=== PATIENT | female | born 1960 | race Caucasian/White ===

== ENCOUNTER 2020-07-30 08:14 | Inpatient (IN) | payer BC, SELFPAY ==
--- OUTSIDE RECORDS SUMMARY | 2020-07-30 08:17 | XMS REPORT | Continuity of Care Document ---
:1960 Author Organization [facility] t Address [address] [place] [address] Care Team Providers Name Role Phone Unavailable Unavailable Unavailable Problems Condition Condition Condition Status Onset Resolution Last Treating Co mments Source Name Details Category Date Date Treatment Clinician Date Ganglion Ganglion Problem [facility] Allergic Allergic Problem [facility] Pure Pure Problem Active [facility] hyperchole hyperchole Luisa kes - sterolemia sterolemia Me moria [facility] Breast Breast Problem Active [facility] cancer cancer [facility] screening screening Enrique [facility]emoc [facility] Encounter Encounter Problem Active [facility] for for [facility] general general [facility] adult adult l medical medical Outpati examinatio examinatio en t n without n without Clin ics abnormal abnormal findings findings Reactive Reactive Problem Active [facility] depression [facility] Adjustment Adjustment Problem Active [facility] insomnia insomnia [facility] Allergies, Adverse Reactions, Alerts This patient has no known allergies or adverse reactions. Medications Ordered Filled Start Stop Current Ordering Indication Dosage Frequency Signature Comments Components Source Medication Medication Date Date Medication? Clinician (SIG) Name Name BuPROPion BuPROPion 2019- Yes Sugey [address] [facility] HCl ER (SR) HCl ER (SR) 2-04 [facility]very in the [facility] 00[facility]: [facility] Milk Milk Yes Sugey not [facility] Thistle Thistle Avery defined [facility] Red Yeast Red Yeast Yes Sugey not [facility] Rice Rice Avery defined [facility] HydrOXYzine HydrOXYzine Yes Sugey [address] [facility] HCl HCl Avery as needed [facility] Multivitami Multivitami Yes Sugey not [facility] n n Avery defined [facility] Outpati ent Clinics Procedures This patient has no known procedures. Encounters Start End Encounter Admission Attending Care Care Encounter Source Date/Time Date/Time Type Type Clinicians Facility Department ID 2019-10-08 2019-10-08 [facility] [id number] [facility] Clin[facility] 2019-07-16 2019-07-16 [facility] [id number] [facility] 16[facility]40[facility] 16[facility]40[facility]00 [facility] Clin[facility] 2019-06-29 2019-06-29 [facility] [id number] [facility] 11:31:00 11:31[facility]00 [facility] Clin[facility] 2019-05-04 2019-05-04 [facility] [id number] [facility] 08:20:00 08:20[facility]00 [facility] Outpat[facility] Clinics 2019-04-04 2019-04-04 [facility] [id number] [facility] 16:40[facility]00 16[facility]40[facility]00 [facility] Clinics 2019-03-13 2019-03-13 [facility] [id number] [facility] 16[facility] 16[facility]00 [facility] Clinics 2019-01-02 2019-01-02 [facility] [id number] [facility] 10:45:00 10:45:00 [facility] Clinic Outpati ent Clinics 2018-10-21 2018-10-21 [facility] [id number] [facility] 17:00:00 17:00:00 [facility] Outpati ent Clinics 2018-10-11 2018-10-11 [facility] [id number] [facility] 13:53:00 13:53:00 t [facility] Medicine Outpati ent Clinics 2018-08-14 2018-08-14 [facility] [id number] [facility] 09:30:00 09:30:00 t Urgent Ur[facility] Outpati ent Clinics 2018-06-07 2018-06-07 [facility] [id number] [facility] 14:45:00 14:45:00 t Urgent Ur[facility] Outpati ent Clinics 2018-01-04 2018-01-04 [facility] [id number] [facility] 14:10:00 14:10:00 t Urgent [facility] Outpati ent Clinics 2018-01-03 2018-01-03 [facility] [id number] [facility] 14:30:00 14:30:00 t Urgent Urgent Care [facility] 2017-09-28 2017-09-28 [facility] [id number] [facility] 13:55:00 13:55:00 t [facility] Medicine Outpati ent Clinics 2017-08-16 2017-08-16 [facility] [id number] [facility] 15:30:00 15:30:00 t [facility] Medicine Outpati ent Clinics 2017-08-16 2017-08-16 Out[facility] [id number] [facility] 11:50:00 11:50:[address] [facility] Outpati ent Clinics Results This patient has no known results.
--- NOTE | 2020-07-30 09:24 | RAD REPORT ---
EXAM DESCRIPTION: RAD - Chest Single View - 07/30/2020 9:11 am CLINICAL HISTORY: Chest pain;Dyspnea Chest pain. COMPARISON: No comparisons FINDINGS: Portable technique limits examination quality. Moderate bilateral pulmonary opacities are present which may represent pulmonary edema or pneumonia. The heart is mildly prominent in size. No displaced fractures.
[2020-07-30] MEDS ORDERED: FAMOTIDINE 20 MG/2 ML VIAL IV ONE (09:25)
[2020-07-30] MEDS ORDERED: METOPROLOL TAR 50 MG TAB ONE (09:25)
[2020-07-30] MEDS ORDERED: ASPIRIN 81 MG CHEWABLE TABLET ONE (09:26)
[2020-07-30] MEDS ORDERED: NA CHLORIDE 0.9% 1,000 ML ONE (09:26)
[2020-07-30] MEDS ORDERED: ENOXAPARIN 60 MG/0.6 ML SQ ONE (09:26)
[2020-07-30 09:51] LABS: Absolute Lymphocytes (CBC) 1.2 K/uL (0.7-4.9); Basophils % 0.4 % (0-1.3); Hematocrit 36.8 % (36.0-45.0); Lymphocytes % 18.6 % (15.3-44.8); MPV 8.6 fL (7.6-11.3); RBC Red Blood Cell Count 3.96 M/uL (3.86-4.86)
[2020-07-30 09:57] LABS: Protime INR 1.05
--- NOTE | 2020-07-30 10:03 | RAD REPORT ---
EXAM DESCRIPTION: CT - Chest For Pe Angio - 07/30/2020 9:54 am CLINICAL HISTORY: Chest pain. Chest pain;Dyspnea COMPARISON: No comparisons TECHNIQUE: CT angiogram of the pulmonary arteries was performed with MIP. All CT scans are performed using dose optimization technique as appropriate and may include automated exposure control or mA/KV adjustment according to patient size. FINDINGS: No evidence of pulmonary thromboembolism. Thoracic aorta is suboptimally contrast opacified due to bolus timing. Mild to moderate bilateral pulmonary opacities are present likely representing pulmonary edema. Small bilateral pleural effusions. No concerning bony finding. IMPRESSION: No evidence of pulmonary thromboembolism. Moderate CHF versus volume overload pattern is seen.
[2020-07-30 10:09] LABS: ALT/SGPT 25 U/L (12-78); AST/SGOT 12 U/L (15-37); Albumin 3.6 g/dL (3.4-5.0); Alkaline Phosphatase 65 U/L (45-117); BUN Blood Urea Nitrogen 16 mg/dL (7-18); Bicarbonate 27 mmol/L (21-32); Bilirubin Direct 0.1 mg/dL (0-0.2); Bilirubin Total 0.6 mg/dL (0.2-1.0); Glucose Level 111 mg/dL (74-106); Lipase 100 U/L (73-393); Magnesium 2.1 mg/dL (1.8-2.4); NT PRO-BNP 8514 pg/mL (<125); Potassium 4.6 mmol/L (3.5-5.1); Protein, Total 7.5 g/dL (6.4-8.2); Sodium Level 139 mmol/L (136-145); Troponin (Emerg Dept Use Only) < 0.02 ng/mL (0.0-0.045)
--- NOTE | 2020-07-30 10:10 | EDPHYS ---
Physician Documentation [facility] Name: Terra Hutchinson Age: 60 yrs Sex: Female : 1960 Arrival Date: 07/30/2020 Time: 08:17 Bed 14 Private MD: GLORIA Physician Troy Padgett HPI: 07/30 08:58 This 60 yrs old Female presents to ER via Ambulatory with complaints of david Breathing Difficulty. 08:58 The patient has shortness of breath with light activity. Onset: The symptoms/episode david began/occurred 2 day(s) ago. Duration: The symptoms are intermittent, with episodes lasting minutes at a time. The patient's shortness of breath is aggravated by exertion, is alleviated by rest, sitting up. Associated signs and symptoms: Pertinent positives: chest pain. Severity of symptoms: At their worst the symptoms were mild moderate in the emergency department the symptoms have improved moderately. The patient has not experienced similar symptoms in the past. Historical: - Allergies: 08:40 No Known Allergies; ss - Home Meds: 08:40 None [Active]; ss - PMHx: 08:40 None; ss - PSHx: 08:40 None; ss - Immunization history:: Adult Immunizations up to date. - Social history:: Smoking status: Patient denies any tobacco usage or history of. ROS: 08:58 Constitutional: Negative for fever, chills, and weight loss, Eyes: Negative for injury, david pain, redness, and discharge, ENT: Negative for injury, pain, and discharge, Neck: Negative for injury, pain, and swelling, Abdomen/GI: Negative for abdominal pain, nausea, vomiting, diarrhea, and constipation, Back: Negative for injury and pain, : Negative for injury, bleeding, discharge, and swelling, MS/Extremity: Negative for injury and deformity, Skin: Negative for injury, rash, and discoloration, Neuro: Negative for headache, weakness, numbness, tingling, and seizure, Psych: Negative for depression, anxiety, suicide ideation, homicidal ideation, and hallucinations, Allergy/Immunology: Negative for hives, rash, and allergies, Endocrine: Negative for neck swelling, polydipsia, polyuria, polyphagia, and marked weight changes, Hematologic/Lymphatic: Negative for swollen nodes, abnormal bleeding, and unusual bruising. 08:58 Cardiovascular: Negative for chest pain. 08:58 Respiratory: Positive for dyspnea on exertion, shortness of breath. Exam: 08:58 Constitutional: This is a well developed, well nourished patient who is awake, alert, david and in no acute distress. Head/Face: Normocephalic, atraumatic. Eyes: Pupils equal round and reactive to light, extra-ocular motions intact. Lids and lashes normal. Conjunctiva and sclera are non-icteric and not injected. Cornea within normal limits. Periorbital areas with no swelling, redness, or edema. ENT: Nares patent. No nasal discharge, no septal abnormalities noted. Tympanic membranes are normal and external auditory canals are clear. Oropharynx with no redness, swelling, or masses, exudates, or evidence of obstruction, uvula midline. Mucous membranes moist. Neck: Trachea midline, no thyromegaly or masses palpated, and no cervical lymphadenopathy. Supple, full range of motion without nuchal rigidity, or vertebral point tenderness. No Meningismus. Chest/axilla: Normal chest wall appearance and motion. Nontender with no deformity. No lesions are appreciated. Cardiovascular: Regular rate and rhythm with a normal S1 and S2. No gallops, murmurs, or rubs. Normal PMI, no JVD. No pulse deficits. Respiratory: Lungs have equal breath sounds bilaterally, clear to auscultation and percussion. No rales, rhonchi or wheezes noted. No increased work of breathing, no retractions or nasal flaring. Abdomen/GI: Soft, non-tender, with normal bowel sounds. No distension or tympany. No guarding or rebound. No evidence of tenderness throughout. Back: No spinal tenderness. No costovertebral tenderness. Full range of motion. Female : Normal external genitalia. Skin: Warm, dry with normal turgor. Normal color with no rashes, no lesions, and no evidence of cellulitis. MS/ Extremity: Pulses equal, no cyanosis. Neurovascular intact. Full, normal range of motion. Neuro: Awake and alert, GCS 15, oriented to person, place, time, and situation. Cranial nerves II-XII grossly intact. Motor strength 5/5 in all extremities. Sensory grossly intact. Cerebellar exam normal. Normal gait. Psych: Awake, alert, with orientation to person, place and time. Behavior, mood, and affect are within normal limits. 08:58 Musculoskeletal/extremity: DVT Exam: No signs of deep vein thrombosis. no pain, no swelling, no tenderness, negative Homans' sign noted on exam, no appreciated bluish discoloration, no erythema, no increased warmth. 09:01 ECG was reviewed by the Attending Physician. david Vital Signs: 08:37 BP 128 / 81; Pulse 112; Resp 18; Temp 97.9; Pulse Ox 99% on R/A; Weight 57.61 kg; ss Height 5 ft. 3 in. (160.02 cm); Pain 6/10; 09:53 BP 110 / 78; Pulse 102; Resp 18; Pulse Ox 96% on R/A; bw 10:48 BP 118 / 63; Pulse 105; Resp 21; Pulse Ox 96% on R/A; bw 13:25 BP 110 / 78; Pulse 87; Resp 19; Pulse Ox 97% on R/A; bw 08:37 Body Mass Index 22.50 (57.61 kg, 160.02 cm) ss MDM: 08:45 Patient medically screened. david 08:59 Differential diagnosis: CHF exacerbation, Chronic Obstructive Pulmonary Disease david abnormal EKG, acute myocardial infarction, anxiety, coronary artery disease chest wall pain, congestive heart failure esophagitis, pancreatitis, stable angina, unstable angina, Myocardial Infarction pulmonary edema, Pulmonary Embolism. Antibiotic administration: Not indicated. HEART Score: History: Moderately Suspicious (1), ECG: Non specific repolarization disturbance / LBTB / PM (1), Age: > 45 and < 65 years (1), Risk Factors: 1 or 2 risk factors (1), [Hypercholesterolemia] [+ Family HX] Troponin: < or = 1 x Normal Limit (0). The patient was given aspirin in the Emergency Department. The patient's Wells Deep Vein Thrombosis Score was calculated as follows: Total Score: 0. This patient was found to be at low risk for a deep vein thrombosis by using the Well's assessment criteria Total Score: 0-2 Pts- Low Risk. The patient's pulmonary embolism risk score was calculated as follows: Total Score: 0-2 points. This patient was found to be at low risk for a pulmonary embolism by using the Well's assessment criteria Total Score: 0-2 points. This patient was found to be at low risk for a pulmonary embolism by using the Well's assessment criteria. FERN Risk Score: TOTAL SCORE = 0. Immunization status: Influenza vaccine: Data reviewed: vital signs, nurses notes, lab test result(s), EKG, radiologic studies. Data interpreted: surveillance monitor: rate is 112 beats/min, rhythm is regular, Pulse oximetry: on room air is 99 %. Test interpretation: by ED physician or midlevel provider: ECG, plain radiologic studies. 07/30 08:56 Order name: Basic Metabolic Panel; Complete Time: 10:34 [facility] 07/30 08:56 Order name: CBC with Diff; Complete Time: 09:59 [facility] 07/30 08:56 Order name: LFT's; Complete Time: 10:34 [facility] 07/30 08:56 Order name: Magnesium; Complete Time: 10:34 [facility] 07/30 08:56 Order name: NT PRO-BNP; Complete Time: 10:34 [facility] 07/30 08:56 Order name: PT-INR; Complete Time: 10:06 [facility] 07/30 08:56 Order name: Troponin (emerg Dept Use Only); Complete Time: 10:34 [facility] 07/30 08:56 Order name: Lipase; Complete Time: 10:34 [facility] 07/30 09:58 Order name: Blood Culture Adult (2) [facility] 07/30 10:10 Order name: CREATININE WHOLE BLOOD; Complete Time: 10:34 [facility] 07/30 10:44 Order name: COVID-19/FLU A+B [facility] 07/30 12:04 Order name: C-Reactive Protein [facility] 07/30 08:56 Order name: XRAY Chest (1 view); Complete Time: 09:59 [facility] 07/30 08:56 Order name: EKG; Complete Time: 08:57 [facility] 07/30 08:56 Order name: Cardiac monitoring; Complete Time: 08:59 [facility] 07/30 08:56 Order name: EKG - Nurse/Tech; Complete Time: 08:59 [facility] 07/30 08:56 Order name: CT Chest For PE Angio; Complete Time: 10:06 [facility] 07/30 12:00 Order name: CONS Physician Consult [facility] 07/30 12:01 Order name: Echo with Doppler [facility] 07/30 12:04 Order name: Ferritin [facility] 07/30 08:56 Order name: IV Saline Lock; Complete Time: 08:59 [facility] 07/30 08:56 Order name: Labs collected and sent; Complete Time: 08:59 [facility] 07/30 08:56 Order name: O2 Per Protocol; Complete Time: : david 07/30 08:56 Order name: O2 Sat Monitoring; Complete Time: : [facility] EC:01 Rate is 109 beats/min. Rhythm is regular. QRS [place] is Normal. MS interval is normal. david QRS interval is normal. QT interval is normal. T waves are Inverted in leads II, III, aVF, V5, V6. No ST changes noted. Clinical impression: NSR w/ Non-specific ST/T Changes. Interpreted by me. Reviewed by me. Administered Medications: : Not Given (Duplicate Order): NS 0.9% 1000 ml IV at 125 ml/hr continuous david 10:09 Drug: Lopressor (metoprolol TARTRATE) 50 mg Route: PO; sr5 13:22 Follow up: Response: No adverse reaction bw 10:10 Drug: Aspirin Chewable Tablet 324 mg Route: PO; sr5 10:13 Drug: Pepcid (famotidine) 20 mg Route: IVP; Site: left antecubital; sr5 13:23 Follow up: Response: No adverse reaction bw 10:15 Drug: Lovenox (enoxaparin) 1 mg/kg Route: Sub-Q; Site: right lower abdomen; sr5 13:22 Follow up: Response: No adverse reaction bw 10:15 Drug: Rocephin - (cefTRIAXone) 1 grams Route: IVPB; Infused Over: 30 mins; Site: left antecubital; 10:45 Follow up: Response: No adverse reaction; IV Status: Completed infusion bw 10:49 Follow up: Response: No adverse reaction bw 10:43 Drug: Zithromax (azithromycin) 500 mg Route: IVPB; Infused Over: 1 hrs; Site: left antecubital; 13:21 Follow up: Response: No adverse reaction; IV Status: Completed infusion bw 10:43 Drug: Lasix (furosemide) 20 mg Route: IVP; Site: left antecubital; bw 10:50 Follow up: Response: No adverse reaction Disposition: 07/30/20 10:09 Hospitalization ordered by Fili Hackett for Inpatient Admission. Preliminary diagnosis are Angina pectoris, Diastolic (congestive) heart failure, Dyspnea. - Bed requested for Telemetry/MedSurg (Inpatient). - Status is Inpatient Admission. bw - Condition is Fair. - Problem is new. - Symptoms have worsened. Signatures: Dispatcher [employer] EDAZ Nely Salazar, RN RN Troy Fam MD MD cha Smirch, Shelby, RN RN Shant Benedict, RN RN sr5 Josiane Mayberry RN RN Corrections: (The following items were deleted from the chart) 10:02 08:57 CORONAVIRUS+MR.LAB.BRZ ordered. EDAZ EDAZ 10:03 09:58 Influenza Screen (A \T\ B)+BA.LAB.BRZ ordered. EDAZ EDMS 12:58 10:09 Hospitalization Ordered by Fili Hackett MD for Inpatient Admission. Preliminary diagnosis is Angina pectoris; Diastolic (congestive) heart failure; Dyspnea. Bed requested for Telemetry/MedSurg (Inpatient). Status is Inpatient Admission. Condition is Fair. Problem is new. Symptoms have worsened. david 14:30 12:58 07/30/2020 10:09 Hospitalization Ordered by Fili Hackett MD for Inpatient bw Admission. Preliminary diagnosis is Angina pectoris; Diastolic (congestive) heart failure; Dyspnea. Bed requested for Telemetry/MedSurg (Inpatient). Status is Inpatient Admission. Condition is Fair. Problem is new. Symptoms have worsened. dw
--- NOTE | 2020-07-30 10:10 | ER ---
Nurse's Notes [facility] Name: Terra Hutchinson Age: 60 yrs Sex: Female : 1960 Arrival Date: 07/30/2020 Time: 08:17 Bed 14 Private MD: Diagnosis: Angina pectoris;Diastolic (congestive) heart failure;Dyspnea Presentation: 07/30 08:37 Chief complaint: Patient states: shortness of breath x 1 week. Denies fever/ cough. Pt ss reports that the shortness of breath was worse at night at first, then on exertion and now it's all the time. Coronavirus screen: Client denies travel out of the [place] in the last 14 days. Client presents with at least one sign or symptom that may indicate coronavirus-19. Standard/surgical mask placed on the client. Provider contacted for isolation considerations. Ebola Screen: Patient denies exposure to infectious person. Patient denies travel to an Ebola-affected area in the 21 days before illness onset. Initial Sepsis Screen: Does the patient meet any 2 criteria? No. Patient's initial sepsis screen is negative. Does the patient have a suspected source of infection? No. Patient's initial sepsis screen is negative. Risk Assessment: Do you want to hurt yourself or someone else? Patient reports no desire to harm self or others. Onset of symptoms was July 23, 2020. 08:37 Method Of Arrival: Ambulatory ss 08:37 Acuity: EYAD 3 ss Triage Assessment: 13:24 General: Appears in no apparent distress. uncomfortable. General: Behavior is calm, bw cooperative, appropriate for age. Respiratory: Reports shortness of breath cough that is Onset: The symptoms/episode began/occurred yesterday. Respiratory: the patient has mild shortness of breath. Historical: - Allergies: 08:40 No Known Allergies; ss - Home Meds: 08:40 None [Active]; ss - PMHx: 08:40 None; ss - PSHx: 08:40 None; ss - Immunization history:: Adult Immunizations up to date. - Social history:: Smoking status: Patient denies any tobacco usage or history of. Screenin:56 Abuse screen: Denies threats or abuse. Nutritional screening: No deficits noted. bw Tuberculosis screening: No symptoms or risk factors identified. Fall Risk None identified. Assessment: 08:56 General: Appears in no apparent distress. Behavior is calm, cooperative, appropriate bw for age. Pain: Complains of pain in denies pain, but SOB. Cardiovascular: Rhythm is sinus tachycardia. Respiratory: Airway is patent Respiratory effort is even, unlabored, Breath sounds are clear bilaterally. Breath sounds are diminished. 09:54 Reassessment: Patient appears in no apparent distress at this time. Patient and/or bw family updated on plan of care and expected duration. Pain level reassessed. Patient is alert, oriented x 3, equal unlabored respirations, skin warm/dry/pink. 10:48 Reassessment: Patient appears in no apparent distress at this time. Patient and/or bw family updated on plan of care and expected duration. Pain level reassessed. Patient is alert, oriented x 3, equal unlabored respirations, skin warm/dry/pink. 13:24 Reassessment: Patient appears in no apparent distress at this time. Patient and/or bw family updated on plan of care and expected duration. Pain level reassessed. Patient is alert, oriented x 3, equal unlabored respirations, skin warm/dry/pink. 13:48 Reassessment: report called to 2nd floor RN. Vital Signs: 08:37 BP 128 / 81; Pulse 112; Resp 18; Temp 97.9; Pulse Ox 99% on R/A; Weight 57.61 kg; ss Height 5 ft. 3 in. (160.02 cm); Pain 6/10; 09:53 BP 110 / 78; Pulse 102; Resp 18; Pulse Ox 96% on R/A; bw 10:48 BP 118 / 63; Pulse 105; Resp 21; Pulse Ox 96% on R/A; bw 13:25 BP 110 / 78; Pulse 87; Resp 19; Pulse Ox 97% on R/A; bw 08:37 Body Mass Index 22.50 (57.61 kg, 160.02 cm) ED Course: 08:17 Patient arrived in ED. ds1 08:40 Triage completed. ss 08:40 Arm band placed on right wrist. ss 08:45 Troy Padgett MD is Attending Physician. [facility] 08:56 Josiane Mayberry, RN is Primary Nurse. 08:56 Patient has correct armband on for positive identification. Bed in low position. Call bw light in reach. Side rails up X2. engine monitor on. Pulse ox on. NIBP on. Warm blanket given. 08:56 No provider procedures requiring assistance completed. bw 09:11 XRAY Chest (1 view) In Process Unspecified. EDMS 09:12 Missed attempt(s): 22 gauge in right forearm. mt 09:36 Initial lab(s) drawn, by me, sent to lab. Inserted saline lock: 22 gauge in left sr5 antecubital area, using aseptic technique. Blood collected. 22g [employer]. 09:54 CT Chest For PE Angio In Process Unspecified. EDMS 10:07 Fili Hackett MD is Hospitalizing Provider. david 10:15 First set of blood cultures drawn by me. mt 10:32 Second set of blood cultures drawn by me. mt 13:24 Patient admitted, IV remains in place. bw Administered Medications: 09:58 Not Given (Duplicate Order): NS 0.9% 1000 ml IV at 125 ml/hr continuous david 10:09 Drug: Lopressor (metoprolol TARTRATE) 50 mg Route: PO; sr5 13:22 Follow up: Response: No adverse reaction bw 10:10 Drug: Aspirin Chewable Tablet 324 mg Route: PO; sr5 10:13 Drug: Pepcid (famotidine) 20 mg Route: IVP; Site: left antecubital; sr5 13:23 Follow up: Response: No adverse reaction bw 10:15 Drug: Lovenox (enoxaparin) 1 mg/kg Route: Sub-Q; Site: right lower abdomen; sr5 13:22 Follow up: Response: No adverse reaction bw 10:15 Drug: Rocephin - (cefTRIAXone) 1 grams Route: IVPB; Infused Over: 30 mins; Site: left bw antecubital; 10:45 Follow up: Response: No adverse reaction; IV Status: Completed infusion bw 10:49 Follow up: Response: No adverse reaction bw 10:43 Drug: Zithromax (azithromycin) 500 mg Route: IVPB; Infused Over: 1 hrs; Site: left bw antecubital; 13:21 Follow up: Response: No adverse reaction; IV Status: Completed infusion bw 10:43 Drug: Lasix (furosemide) 20 mg Route: IVP; Site: left antecubital; bw 10:50 Follow up: Response: No adverse reaction bw Outcome: 10:09 Decision to Hospitalize by Provider. david 13:23 Admitted to Med/surg 13:23 Condition: stable 13:23 Discharge instructions given to patient, family. 14:30 Patient left the ED. Signatures: Dispatcher [employer] EDTroy Tamayo MD MD cha Sanford, Demi ds1 Yomaira Rush, RN RN Shant Fairchild, RN RN sr5 Ruben Garciaah Josiane Paul RN RN
[2020-07-30] MEDS ORDERED: CEFTRIAXONE/SWI 1gm 1 GM/10 ML SYR ONE (10:22)
[2020-07-30] MEDS ORDERED: FUROSEMIDE 20 MG/ 2ML VIAL ONE (10:22)
[2020-07-30] MEDS ORDERED: NA CHLORIDE 0.9% 250 ML ONE (10:22)
[2020-07-30] MEDS ORDERED: AZITHROMYCIN 500 MG INJ IVPB ONE (10:23)
[2020-07-30 10:44] LABS: SARS-COV-2 RT PCR NEGATIVE (NEGATIVE)
--- NOTE | 2020-07-30 12:05 | P.HP ---
Certification for Inpatient Patient admitted to: Observation With expected LOS: <2 Midnights Practitioner: I am a practitioner with admitting privileges, knowledge of patient current condition, hospital course, and medical plan of care. Services: Services provided to patient in accordance with Admission requirements found in Title 42 Section 412.3 of the Code of Federal Regulations Patient History Date of Service: 07/30/20 Reason for admission: New onset CHF exacerbation History of Present Illness: 60-year-old female no significant past medical history presents the ED due to 1 week of worsening shortness of breath/dyspnea on exertion and orthopnea. Patient states she was otherwise in her usual state of health until this past week. She has not been having significant dyspnea, and cannot walk to her mailbox without getting short of breath now. She also states she has been having orthopnea, requiring several pillows over landing and share and inclined position. She denies any prior cardiac history, no recent chest pain, no family history of cardiac issues. She is not take any medications, but does endorse taking a multivitamin and vitamin-D 3. Denies smoking history. Denies fever, chills, chest pain, abdominal pain, nausea/vomiting. She does endorse 2-3 episodes of soft stools/diarrhea yesterday. She does have multiple family members with recent COVID-19 infections, however she reports shows negative last week and negative here in the ER. In the ED, CTA was negative for PE, but notable for bilateral pulmonary edema and small pleural effusions consistent with moderate CHF type picture. She had elevated BNP. Troponin: Negative. EKG without ST elevation, and and some T- wave inversions, unsure if new. The rest of the CBC/CMP was otherwise unrem arkable. Allergies No Known Allergies Allergy (Unverified 02/04/17 09:38) Home medications list reviewed: Yes (None) - Past Medical/Surgical History Diabetic: No Past Medical History: Patient denies medical history -: -: "Monica ames" - Family History Family History: Reviewed- Non-Contributory - Family History Mother -: Heart disease - Social History Smoking Status: Never smoker Alcohol use: No CD- Drugs: No Place of Residence: Home Review of Systems 10-point ROS is otherwise unremarkable Physical Examination - Studies Laboratory Data (last 24 hrs) 07/30/20 09:30: PT 12.1, INR 1.05 07/30/20 09:30: WBC 6.60, Hgb 12.5, Hct 36.8, Plt Count 306 07/30/20 09:30: Sodium 139, Potassium 4.6, BUN 16, Creatinine 0.66, Glucose 111 H, Magnesium 2.1, Total Bilirubin 0.6, AST 12 L, ALT 25, Alkaline Phosphatase 65, Lipase 100 Assessment and Plan - Advance Directives Does patient have a Living Will: No Does patient have a Durable POA for Healthcare: No Physician Review Additional Text: Physical exam General: No apparent distress, alert oriented x3 HEENT: Normal conjunctiva, sclerae anicteric CV: Regular rate and rhythm, no murmur, no rub Pulm: b/l crackles, diminished at bases, very mild tachypnea on room air Abd: soft, NTND Ext: trace edema to ankles, no rash, no lesions Neuro: AAOx3, str 5/5 in upper/lower extremities Problem list New onset CHF exacerbation Small bilateral pleural effusions Bilateral pulmonary edema Patient's blood pressure on presentation was 128/81, HR: 112, 90% on room air Unclear etiology of his presumed CHF exacerbation Patient denies any cardiac history, denies any prior COVID infection , and is negative today Will obtain Echocardiogram for further evaluation Will start IV Lasix for Diuresis Cardiology consulted given new onset will trend troponin VTE: lovenox Code: full Dispo: anticipate dc home in 24-48hrs Time Spent Managing Pts Care (In Minutes): 60
[2020-07-30 12:53] LABS: Ferritin 76.8 ng/mL (8-388)
[2020-07-30 12:59] LABS: C-Reactive Protein < 2.90 mg/L (<3.00)
[2020-07-30] MEDS ORDERED: ONDANSETRON 4 MG/2 ML VIAL ONE (13:03)
[2020-07-30] MEDS ORDERED: ONDANSETRON 4 MG/2 ML VIAL IV PRN (14:34)
[2020-07-30] MEDS ORDERED: ENOXAPARIN 40 MG/0.4 ML SQ SCH (15:00)
[2020-07-30 15:59] VITALS: BMI 22.4
[2020-07-30 16:31] LABS: Troponin I < 0.02 ng/mL (0.0-0.045)
[2020-07-30] MEDS ORDERED: FUROSEMIDE 20 MG/ 2ML VIAL IV SCH (17:00)
[2020-07-30 18:57] LABS: Urine Appearance CLEAR (Clear); Urine Bilirubin NEGATIVE (Negataive); Urine Blood NEGATIVE (Negative); Urine Color YELLOW (Yellow); Urine Glucose NEGATIVE (Negative); Urine Protein NEGATIVE (Negative); Urine Specific Gravity 1.015 (1.005-1.030); Urine Urobilinogen 0.2 mg/dL (0.2-1.0)
[2020-07-30 19:11] LABS: Urine Bacteria <20 /HPF (<20); Urine RBC <5 /HPF (NONE SEEN)
[2020-07-30] MEDS: SACUBITRIL/VALSARTAN 24/26 MG TAB PO SCH (20:36)
[2020-07-31] MEDS: SACUBITRIL/VALSARTAN 24/26 MG TAB PO SCH (04:09)
[2020-07-31 05:44] LABS: Absolute Lymphocytes (CBC) 1.9 K/uL (0.7-4.9); Basophils % 1.2 % (0-1.3); Hematocrit 36.9 % (36.0-45.0); Lymphocytes % 34.5 % (15.3-44.8); MPV 8.8 fL (7.6-11.3); RBC Red Blood Cell Count 3.94 M/uL (3.86-4.86)
[2020-07-31] MEDS ORDERED: carvediloL 3.125 MG TAB PO SCH (06:00)
[2020-07-31 06:06] LABS: Albumin 3.3 g/dL (3.4-5.0); Bilirubin Total 0.4 mg/dL (0.2-1.0); Magnesium 2.2 mg/dL (1.8-2.4); Potassium 4.1 mmol/L (3.5-5.1); Protein, Total 6.8 g/dL (6.4-8.2)
--- NOTE | 2020-07-31 06:54 | EKG ---
Test Date: 2020-07-30 Test Time: 08:54:31 Staff Psychologist: GUERRERO MEASUREMENT RESULTS: Intervals: Rate: 109 [place]: 154 QRSD: 82 QT: 344 QTc: 463 [place]: P: 59 [place]: 154 QRS: 57 T: 252 INTERPRETIVE STATEMENTS: Sinus tachycardia Possible Left atrial enlargement ST & T wave abnormality, consider inferolateral ischemia Abnormal ECG No previous ECG available for comparison Electronically Signed On 07-31-20 06:52:51 CDT by Boni Schneider
--- NOTE | 2020-07-31 08:28 | ECHO ---
HEIGHT: 5 ft 3 in WEIGHT: 127 lb 0 oz DATE OF STUDY: 07/30/[address]: Fili Hackett MD 2-DIMENSIONAL: YES M.MODE: YES DOPPLER: YES COLOR FLOW: YES TDS: NO PORTABLE: NO DEFINITY: NO BUBBLE STUDY: NO DIAGNOSIS: EVALUATE FOR CONGESTIVE HEART FAILURE CARDIAC HISTORY: CATHERIZATION: NO SURGERY: NO PROSTHETIC VALVE: NO PACEMAKER: NO MEASUREMENTS (cm) DIASTOLIC (NORMALS) SYSTOLIC (NORMALS) IVSd 0.8 (0.6-1.2) LA Diam 3.1 (1.9-4.0) LVEF 18% LVIDd 5.9 (3.5-5.7) LVIDs 5.4 (2.0-3.5) %FS 8% LVPWd 0.9 (0.6-1.2) Ao Diam 2.1 (2.0-3.7) 2 DIMENSIONAL ASSESSMENT: RIGHT ATRIUM: NORMAL LEFT ATRIUM: NORMAL RIGHT VENTRICLE: NORMAL LEFT VENTRICLE: DILATED TRICUSPID VALVE: NORMAL MITRAL VALVE: NORMAL PULMONIC VALVE: NORMAL AORTIC VALVE: NORMAL PERICARDIAL EFFUSION: NONE AORTIC ROOT: NORMAL LEFT VENTRICULAR WALL MOTION: SEVERE GLOBAL HYPOKINESIS. DOPPLER/COLOR FLOW: MILD TRICUSPID AND MITRAL REGURGITATION. COMMENTS: MILD TRICUSPID AND MITRAL REGURGITATION. SEVERE GLOBAL HYPOKINESIS. LEFT VENTRICULAR EJECTION FRACTION 18%. NO CLOTS. NO EFFUSION. TECHNOLOGIST: [place] LEWIS
--- NOTE | 2020-07-31 08:29 | RAD REPORT ---
EXAM DESCRIPTION: Misti Single View07/31/2020 8:12 am CLINICAL HISTORY: Shortness of breath COMPARISON: July 30 FINDINGS: Bilateral pulmonary opacities have resolved. Heart is mildly enlarged IMPRESSION: Resolution in the pulmonary edema
[2020-07-31] MEDS ORDERED: ENOXAPARIN 40 MG/0.4 ML SQ SCH (09:00)
[2020-07-31 09:15] VITALS: BP 82/60; TEMP 97.7
[2020-07-31 10:22] VITALS: O2SAT 93
--- NOTE | 2020-07-31 11:03 | P.DS ---
Admission Date: 07/30/20 Discharge Date: 07/31/20 Disposition: ROUTINE DISCHARGE Discharge Condition: GOOD Reason for Admission: New onset CHF exacerbation Consultations: Cardiology - Dr. Schneider Procedures: CXR (07/30): Moderate bilateral pulmonary opacities are present which may represent pulmonary edema or pneumonia. The heart is mildly prominent in size. No displaced fractures. CTA Chest (07/30): No evidence of pulmonary thromboembolism. Moderate CHF versus volume overload pattern is seen. CXR (07/31): Resolution in the pulmonary edema TTE (07/30): LV EF: 18%, dilated LV. Severe global hypokinesis. Mild TR and MR. No clots. No effusion. Problem list New onset, acute systolic CHF exacerbation / Dilated Cardiomyopathy Brief History of Present Illness: 60-year-old female no significant past medical history presents the ED due to 1 week of worsening shortness of breath/dyspnea on exertion and orthopnea. Patient states she was otherwise in her usual state of health until this past week. She has not been having significant dyspnea, and cannot walk to her mailbox without getting short of breath now. She also states she has been having orthopnea, requiring several pillows over landing and share and inclined position. She denies any prior cardiac history, no recent chest pain, no family history of cardiac issues. She is not take any medications, but does endorse taking a multivitamin and vitamin-D 3. Denies smoking history. Denies fever, chills, chest pain, abdominal pain, nausea/vomiting. She does endorse 2-3 e pisodes of soft stools/diarrhea yesterday. She does have multiple family members with recent COVID-19 infections, however she reports shows negative last week and negative here in the ER. In the ED, CTA was negative for PE, but notable for bilateral pulmonary edema and small pleural effusions consistent with moderate CHF type picture. She had elevated BNP. Troponin: Negative. EKG without ST elevation, and and some T- wave inversions, unsure if new. The rest of the CBC/CMP was otherwise unremarkable. Hospital Course: Patient was diuresed with Lasix and responded well. Echocardiogram was obtained which revealed an EF of 18%, with a severely dilated LV. Cardiology was consulted and recommended Entresto, low-dose carvedilol, and Lasix. Patient's blood pressure to begin amount was borderline low-normal in drops into the 80s/40 's with Entresto. She denied any dizziness/lightheadedness with her blood pressure like this. She reportedly feeling significantly better after diuresis. Due to her low blood pressure she was only discharged with a prescription for Entresto. She was advised to check her blood pressure every day and to hold the medication if her systolic blood pressure was less than 90. She was advised on a low- sodium, 2 L fluid restriction diet. She is to follow up with Dr. Schneider next week. She is to keep a log of her blood pressure is a will take this to her appointment. Further addition of Coreg and Lasix to be discussed at that time. Vital Signs/Physical Exam: Physical exam General: No apparent distress, alert oriented x3 HEENT: Normal conjunctiva, sclerae anicteric CV: Regular rate and rhythm, no murmur, no rub Pulm: Clear auscultation bilaterally, nonlabored respirations on room air Abd: soft, NTND Ext: No edema, no rash, no lesions Neuro: AAOx3, str 5/5 in upper/lower extremities Temp Pulse Resp BP Pulse Ox 97.7 F 94 H 18 82/60 L 94 07/31/20 08:00 07/31/20 08:00 07/31/20 08:00 07/31/20 08:00 07/31/20 08:00 Laboratory Data at Discharge: WBC 5.50 K/uL (4.3-10.9) D 07/31/20 05:06 Hgb 12.2 g/dL (12.0-15.0) 07/31/20 05:06 Hct 36.9 % (36.0-45.0) 07/31/20 05:06 Plt Count 298 K/uL (152-406) 07/31/20 05:06 PT 12.1 SECONDS (9.5-12.5) 07/30/20 09:30 INR 1.05 07/30/20 09:30 Sodium 141 mmol/L (136-145) 07/31/20 05:06 Potassium 4.1 mmol/L (3.5-5.1) 07/31/20 05:06 BUN 18 mg/dL (7-18) 07/31/20 05:06 Creatinine 0.78 mg/dL (0.55-1.3) 07/31/20 05:06 Glucose 95 mg/dL (74-106) 07/31/20 05:06 Magnesium 2.2 mg/dL (1.8-2.4) 07/31/20 05:06 Total Bilirubin 0.4 mg/dL (0.2-1.0) 07/31/20 05:06 AST 15 U/L (15-37) 07/31/20 05:06 ALT 23 U/L (12-78) 07/31/20 05:06 Alkaline Phosphatase 58 U/L (45-117) 07/31/20 05:06 Troponin I Cancelled 07/30/20 21:30 Lipase 100 U/L (73-393) 07/30/20 09:30 Home Medications: Sacubitril/Valsartan [Entresto 24 mg-26 mg Tablet] 1 tab PO BID 30 Days #60 tab 07/31/20 New Medications: Sacubitril/Valsartan [Entresto 24 mg-26 mg Tablet] 1 tab PO BID 30 Days #60 tab Diet: Low sodium Activity: Ad ryan Followup: Sugey Anne, MELODY [Primary Care Provider] - Time spent managing pt's care (in minutes): 40
--- NOTE | 2020-07-31 21:59 | CON ---
Reason For Consultation: Admitted to Dr. Hackett's service with congestive heart failure. History Of Present Illness: Ms. Hutchinson is an is 60-year-old woman who has no past medical history. She denies hypertension, diabetes, dyslipidemia, family history of heart disease. She denied tobacco use or alcohol use. She is very healthy. Denied any travel outside the country. Denied any exposu re of any viruses. Denied any recent fever or chills or illness. Came in with 1 week PND, orthopnea , pedal edema, shortness of breath, and found to have on chest x-ray to be in congestive heart failur e. Echocardiogram showed an ejection fraction of 18% with dilated cardiomyopathy, new onset. Past Medical History: Otherwise negative. Allergies: NEGATIVE. Review of Systems: Negative. Social History: Negative. Family History: Negative. Physical Examination: General: Very pleasant lady, looks younger than her stated age. Vital Signs: Stable, afebrile. Blood pressure was 110/60, sinus rhythm. HEENT: Negative. Neck: Supple. No bruit. Chest: Clear to auscultation and percussion on the right. On the left side, she has some rales. Cardiac: Exam revealed sinus rhythm with an S3 gallops and S4 gallops. No murmurs or rubs. Abdomen: Benign. Extremities: Revealed 1+ edema. Diagnostic Data: Unremarkable except for a BNP of 1192. EKG was normal. Chest x-ray showed mild CH F. Impression And Plan: Acute systolic congestive heart failure, dilated cardiomyopathy, ejection fract ion of 18%. The patient needs to be on Entresto, Coreg and Lasix. If her blood pressure tolerates i t, we will add Aldactone. I will see her in the office in the next 2 to 3 days. She will eventually need a heart catheterization. If ejection fraction does not improve on medication, we will consider defibrillator biventricular pacemaker and I will consider her for a LifeVest sometime next week. Sunita richter has not had any arrhythmia since. The case was discussed with her in detail with her son available and was discussed with Dr. Hackett as well. ROBYN/ABEL Voice ID: [id number] Report ID: [id number]
== END 2020-07-31 11:50 | disposition home or self-care (01) | DRG 292 ==
LOC: ER 08:14 → ERHOLD 11:59 → 2ND 13:55 → OBSVTOIN 18:53
PROVIDERS: ADMIT Hospitalist; ATTEND Hospitalist
DX: I50.23 Acute on chronic systolic (congestive) heart failure (principal); I42.0 Dilated cardiomyopathy; Z79.899 Other long term (current) drug therapy; Z20.822 Contact with and (suspected) exposure to COVID-19
CPT/HCPCS: 0240U; 36415; 71045; 71275; 80048; 80053; 80076; 81001; 82565; 82728; 83690; 83735; 83880; 84439; 84443; 84484; 85025; 85610; 86140; 87040; 93005; 93306; 94760; 96365; 96366; 96372; 96375; 99285; G0378; J0456; J0696; J1650; J1940; J2405; J7030; J7050; Q9967

== ENCOUNTER 2020-08-21 12:55 | Day surgery (SDC) | payer SELFPAY ==
[2020-08-19 12:38] LABS: Absolute Lymphocytes (CBC) 1.8 K/uL (0.7-4.9); Basophils % 1.4 % (0-1.3); Hematocrit 39.1 % (36.0-45.0); Lymphocytes % 35.6 % (15.3-44.8); MPV 8.9 fL (7.6-11.3); RBC Red Blood Cell Count 4.22 M/uL (3.86-4.86)
[2020-08-19 12:50] LABS: Potassium 4.2 mmol/L (3.5-5.1)
[2020-08-19 13:01] LABS: Protime INR 1.04
--- NOTE | 2020-08-20 16:12 | EKG ---
Test Date: 2020-08-19 Test Time: 11:14:52 Transplant Rn: JOSUE MEASUREMENT RESULTS: Intervals: Rate: 83 ME: 168 QRSD: 82 QT: 382 QTc: 448 [place]: P: 70 ME: 168 QRS: 38 T: 212 INTERPRETIVE STATEMENTS: Normal sinus rhythm Possible Left atrial enlargement T wave abnormality, consider inferior ischemia T wave abnormality, consider anterolateral ischemia Abnormal ECG Compared to ECG 07/30/2020 08:54:31 T-wave abnormality now present Sinus tachycardia no longer present ST (T wave) deviation no longer present Possible ischemia still present Electronically Signed On 08-20-20 16:07:21 CDT by Boni Schneider
[2020-08-21] MEDS ORDERED: NA CHLORIDE 0.9% 500 ML ONE (16:30)
[2020-08-21] MEDS ORDERED: HEPARIN 5000 UNIT/ML 1 ML VIAL ONE (17:32)
[2020-08-21] MEDS ORDERED: HEPA 1000U/500MLS 2,000 UNIT/1,000 ML BAG IV ONE (17:32)
[2020-08-21] MEDS ORDERED: VERAPAMIL HCL 10 MG/4 ML VIAL IV ONE (17:33)
[2020-08-21] MEDS ORDERED: FENTANYL CITR 100 MCG/2 ML ONE (17:33)
[2020-08-21] MEDS ORDERED: HEPARIN 10,000 UNIT/10 ML VIAL IV ONE (17:33)
[2020-08-21] MEDS ORDERED: MIDAZOLAM HCL 2 MG/2 ML INJ ONE (17:33)
[2020-08-21] MEDS ORDERED: ATROPINE SULF 1 MG/10 ML SYR IV ONE (17:34)
[2020-08-21] MEDS ORDERED: METOPROLOL TARTRATE 5 MG/5 ML INJ IV ONE (18:13)
[2020-08-21 19:13] VITALS: TEMP 97.8
[2020-08-21 20:26] VITALS: BP 93/59; O2SAT 97
--- NOTE | 2020-08-22 05:09 | OP ---
Date of Procedure: 08/21/2020 Surgeon: ADRIANA JACKSON Procedure Performed: 1.Selective coronary angiogram. 2.Left heart catheterization. Indication: New-onset systolic congestive heart failure with EF of 15% to 20%. Access: Right radial artery 6-Welsh closed with TR band. Description Of Procedure: After risks, benefits, alternatives were explained, the patient agreed to the procedure and signed informed consent. The patient was brought into the cardiac catheterization laboratory, prepped and draped in usual sterile fashion. Then, we access radiated to the right radia l artery using a pediatric micropuncture kit and placed a 6-Welsh slender sheath and took a 5-Welsh [place] catheter for onto the aortic root, engaged left main, right coronary artery and took standard views and then the catheter was pushed over the wire across aortic valve into the LV, recorded LVEDP and upon pullback, there was no gradient and then removed the catheter and wire and sheath was remove d, placed TR band with good hemostasis. Findings: 1.Left main is normal. 2.LAD is normal with some myocardial branch. 3.Left circumflex is normal. 4.RCA is dominant and normal. 5.LVEDP of 15 mmHg. Conclusion: Normal coronary arteries and this is nonischemic cardiomyopathy. Recommendations: Guideline directed medical therapy for congestive heart failure. SR/MODL Voice ID: [id number] Report ID: [id number]
== END 2020-08-21 20:00 | disposition home or self-care (01) ==
LOC: CCL 12:55
PROVIDERS: ATTEND Internal Medicine
PROC: 4A023N7 Measurement of Cardiac Sampling and Pressure, Left Heart, Percutaneous Approach (ICD-10-PCS; principal; 2020-08-21)
PROC: B201YZZ Plain Radiography of Multiple Coronary Arteries using Other Contrast (ICD-10-PCS; 2020-08-21)
PROC: B205YZZ Plain Radiography of Left Heart using Other Contrast (ICD-10-PCS; 2020-08-21)
DX: I50.21 Acute systolic (congestive) heart failure (principal); I42.9 Cardiomyopathy, unspecified; Z20.822 Contact with and (suspected) exposure to COVID-19; Z82.49 Family history of ischemic heart disease and other diseases of the circulatory system
CPT/HCPCS: 36415; 80048; 85025; 85610; 85730; 93005; 93458; C1893; J1644; J2250; J3010; J7040; U0003

== ENCOUNTER 2021-03-31 07:38 | Emergency (ER) | payer OTHER ==
--- OUTSIDE RECORDS SUMMARY | 2021-03-31 07:41 | XMS REPORT | Continuity of Care Document ---
:1960 Author Organization [facility] t Address [address] [place] [address] Care Team Providers Name Role Phone Ashlee ALLRED Attending Clinician Unavailable Janneth LIRA Attending Clinician Unavailable CLARISSA Attending Clinician Unavailable Ashlee ALLRED Attending Clinician Unavailable System MD, Not In Attending Clinician Unavailable BRENDA Attending Clinician Unavailable CLARISSA Admitting Clinician Unavailable Ashlee ALLRED Admitting Clinician Unavailable Payers Payer Name Policy Type Policy Number Effective Date Expiration Date Maribell MARTINEZ [id number] 2020 2024 HEALTH PLAN 00:00:00 00:00:00 [employer] [id number] 2020 SOLUTIONS 00:00:00 Problems Condition Condition Condition Status Onset Resolution Last Treating Co mments Source Name Details Category Date Date Treatment Clinician Date Ganglion Ganglion Problem [facility] Allergic Allergic Problem [facility] Pure Pure Problem Active [facility] hyperchole hyperchole [facility] - sterolemia sterolemia [facility] Breast Breast Problem Active [facility] cancer cancer [facility] screening screening [facility] Encounter Encounter Problem Active [facility] for for [facility] general [facility] adult adult l medical medical Outpati examinatio examinatio en t n without n without Clin ics abnormal abnormal findings findings Reactive Reactive Problem Active [facility] Adjustment Adjustment Problem Active [facility] insomnia [facility] Allergies, Adverse Reactions, Alerts Allergy Allergy Status Severity Reaction(s) Onset Inactive Treating Comm ents Source Name Type Date Date Clinician NO KNOWN Drug Active [facility] ALLERGIE Class ity of S [facility] Social History Social Habit Start Date Stop Date Quantity Comments Source Sex Assigned At [birth year] [facility] 00:00:00 00:00:00 Smoking Status Start Date Stop Date Source Tobacco smoking consumption unknown [facility] Medications Ordered Filled Start Stop Current Ordering Indication Dosage Frequency Signature Comments Components Source Medication Medication Date Date Medication? Clinician (SIG) Name Name BuPROPion BuPROPion 2018-05 Yes [place] [address] [facility] HCl ER (SR) HCl ER (SR) 2-04 [place] [facility] the [facility] Milk Milk Yes Sugey not [facility] Thistle Thistle [place] defined [facility] Red Yeast Red Yeast Yes Sugey not [facility] Rice Rice [place] defined [facility] HydrOXYzine HydrOXYzine Yes [place] [address] [facility] HCl HCl [place] as needed [facility] Multivitami Multivitami Yes Sugey not [facility] n n [place] defined [facility] Vital Signs Vital Name Observation Time Observation Value Comments Source Body height 2020-12-09 16:06:08 160 cm [facility] Body weight 2020-12-09 16:06:08 55 kg [facility] h BMI 2020-12-09 16:06:08 21.48 kg/m2 [facility] Procedures Procedure Date / Time Performed Performing Clinician Te [facility] 2021-02-23 13:53:04 System, Provider Not I n [facility] Encounters Start End Encounter Admission Attending Care Care Encounter Source Date/Time Date/Time Type Type Clinicians Facility Department ID 2021-01-06 Inpatient U [facility] MED [id number] [facility] 20:19:00 2021-01-02 Outpatient [facility] [id number] [place] 01:06:31 [facility] 2020-12-29 Inpatient U [facility] CAR [id number] [facility] 18:58:37 2020-12-26 [facility] [id number] [place] 01:06:09 [facility] 2020-12-25 Outpatient SORAYA [facility] [id number] [place] 01:04:02 [facility] 2020-12-23 Inpatient U [facility] CAR [id number] [facility] 21:52:00 2020-12-12 Outpatient [facility] CAR [id number] [facility] 16:37:42 2020-12-12 Outpatient [facility] CAR [id number] [facility] 12:44:57 2020-12-10 Inpatient U [facility] CAR [id number] [facility] 12:58:00 2020-12-08 Outpatient [facility] CAR [id number] [facility] 10:03:04 2020-11-27 Outpatient [facility] CAR [id number] [facility] 07:37:57 2020-11-26 Inpatient CLARISSA, [facility] CAR [id number] [facility] 19:04:48 [facility] 2021-03-23 2021-03-23 Outpatient GUY, [facility] CAR [id number] M[facility] 07:25:00 23:59:00 [facility] 2021-02-23 2021-02-23 EXT MHH OP [facility], EXT MSRDP [id number] [place] 00:00:00 00:00:00 [facility] LOCATION [id number] Health [id number] 2021-02-17 2021-02-17 Outpatient [facility] CAR [id number] [facility] 05:20:00 05:20:00 2021-02-02 2021-02-02 Outpatient [facility] CAR [id number] [facility] 09:24:00 09:24:00 2021-02-02 2021-02-02 Outpatient [facility] CAR [id number] [facility] 07:27:00 07:27:00 2021-01-19 2021-01-19 Office [facility], EXT MSRDP [id number] [place] 08:40:00 09:00:00 Visit [facility] LOCATION [id number] Health [id number] 2021-01-06 2021-01-06 Outpatient [facility] CAR [id number] [facility] 05:16:00 05:16:00 2020-12-30 2020-12-30 Outpatient [facility] CAR [id number] MH 07:08:00 07:08:00 2020-12-30 2020-12-30 EXT M[facility] IP System, EXT MSRDP [id number] [place] 00:00:00 00:00:00 Provider LOCATION [id number] Health Not In [id number] 2020-12-23 2020-12-23 Outpatient [facility] CAR [id number] [facility] 06:05:00 06:05:00 2020-12-22 2020-12-22 Outpatient [facility] CAR [id number] MH 09:16:00 09:16:00 2020-12-22 2020-12-22 EXT MHH OP Jumean, EXT MSRDP [id number] [place] 00:00:00 00:00:00 Marwan F LOCATION [id number] Health [id number] 2020-12-17 2020-12-17 EXT MHH OP Jumean, EXT MSRDP [id number] [place] 00:00:00 00:00:00 Marwan F LOCATION [id number] Health [id number] 2020-12-11 2020-12-11 EXT MHH OP Jumean, EXT MSRDP [id number] [place] 00:00:00 00:00:00 Marwan F LOCATION [id number] Health [id number] 2020-12-11 2020-12-11 EXT MHH OP Jumean, EXT MSRDP [id number] [place] 00:00:00 00:00:00 Marwan F LOCATION [id number] Health [id number] 2020-12-11 2020-12-11 EXT MHH OP Jumean, EXT MSRDP [id number] [place] 00:00:00 00:00:00 Marwan F LOCATION [id number] Health [id number] 2020-12-11 2020-12-11 EXT MHH OP Guy, EXT MSRDP [id number] [place] 00:00:00 00:00:00 Marwan F LOCATION [id number] Health [id number] 2020-12-09 2020-12-09 Outpatient M[facility] CAR [id number] [facility] 10:35:00 10:35:00 2020-12-09 2020-12-09 Outpatient [facility] CAR [id number] [facility] 09:26:00 09:26:00 2020-12-09 2020-12-09 EXT MHH OP Guy, EXT MSRDP [id number] [place] 00:00:00 00:00:00 Marwan F LOCATION [id number] Health [id number] 2020-12-08 2020-12-08 EXT MHH OP Guy, EXT MSRDP [id number] [place] 00:00:00 00:00:00 Marwan F LOCATION [id number] Health [id number] 2020-11-01 2020-11-01 Inpatient E [facility] CAR [id number] [facility] 20:49:00 13:17:00 2020-07-29 2020-07-29 Outpatient Sanjiv GUTIERREZ [facility] [id number] Univers 08:40:00 08:40:00 MANE [facility] 2020-07-29 2020-07-29 Outpatient [facility] [id number] Univers 08:40:00 08:40:00 [id number] [facility] 2020-07-28 2020-07-28 Outpatient Sanjiv GUTIERREZ [facility] [id number] [id number] [facility] 14:20:00 14:20:00 MANE hoff [facility] 2019-10-08 2019-10-08 [facility] [id number] [facility] 14:00:00 14:00:00 t [facility] Medicine Outpati ent Clinics 2019-07-16 2019-07-16 [facility] [id number] [facility] 16:40:00 16:40:00 t [facility] Out[facility] Clinics 2019-06-29 2019-06-29 [facility] [id number] [facility] 11:31:00 11:31:00 t [facility] Clin[facility] 2019-05-04 2019-05-04 [facility] [id number] 08:20:00 08:20:00 t [facility] Clin[facility] 2019-04-04 2019-04-04 [facility] [id number] 16:40:00 16:40:00 t [facility] Out[facility] ent Clinics 2019-03-13 2019-03-13 [facility] [id number] 16:00:00 16:00:00 t [facility] Out[facility] Clin[facility] 2019-01-02 2019-01-02 [facility] [id number] [facility] 10:45:00 10:45:00 [facility] 2018-10-21 2018-10-21 [facility] [id number] [facility] 17:00:00 17:00:00 [facility] 2018-10-11 2018-10-11 [facility] [id number] 13:53:00 13:53:00 t [facility] Out[facility] Clin[facility] 2018-08-14 2018-08-14 [facility] [id number] [facility] [facility] 09:30:00 09:30:00 t [facility] [place] - Care [facility] Outpat[facility] Clinics 2018-06-07 2018-06-07 [facility] [id number] [facility] 14:45:00 14:45:00 t Urgent [facility] L [facility] - Care Clinic [facility] 2018-01-04 2018-01-04 [facility] [id number] [facility] 14:10:00 14:10:00 t [facility] - Care Clinic [facility] 2018-01-03 2018-01-03 Out[facility] [id number] [facility] 14:30:00 14:30:00 t Urgent [facility] L [facility] 2017-09-28 2017-09-28 Out[facility] [id number] 13:55:00 13:55:00 t [facility] Outpati ent Clinics 2017-08-16 2017-08-16 Out[facility] [id number] 15:30:00 15:30:00 t [facility] Outpat[facility] Clinics 2017-08-16 2017-08-16 Out[facility] [id number] 11:50:00 11:50:00 t [facility] Results This patient has no known results.
--- NOTE | 2021-03-31 09:47 | RAD REPORT ---
EXAM DESCRIPTION: RAD - Chest Single View - 03/31/2021 9:12 am CLINICAL HISTORY: COUGH Chest pain. COMPARISON: Chest Single View dated 07/31/2020; Chest Single View dated 07/30/2020 FINDINGS: Portable technique limits examination quality. The lungs are mildly emphysematous but grossly clear. The heart is normal in size. No displaced fract ures.Sternotomy wires for present. IMPRESSION: No acute intrathoracic process suspected.
[2021-03-31 10:10] LABS: SARS-COV-2 RT PCR NEGATIVE (NEGATIVE)
--- NOTE | 2021-03-31 10:32 | ER ---
Nurse's Notes [facility] Name: Terra Hutchinson Age: 60 yrs Sex: Female : 1960 Arrival Date: 03/31/2021 Time: 07:42 Bed 20 Private MD: Diagnosis: Acute bronchitis, unspecified Presentation: 03/31 07:47 Chief complaint: Patient states: cough and nasal congestion that began 5 days ago. ss Denies fever. Coronavirus screen: Client denies travel out of the [place] in the last 14 days. Client presents with at least one sign or symptom that may indicate coronavirus-19. Standard/surgical mask placed on the client. Provider contacted for isolation considerations. Ebola Screen: Patient denies exposure to infectious person. Patient denies travel to an Ebola-affected area in the 21 days before illness onset. Resp Distress? No respiratory distress is noted at this time. Initial Sepsis Screen: Does the patient meet any 2 criteria? HR > 90 bpm. No. Patient's initial sepsis screen is negative. Does the patient have a suspected source of infection? No. Patient's initial sepsis screen is negative. Risk Assessment: Do you want to hurt yourself or someone else? Patient reports no desire to harm self or others. Onset of symptoms was March 26, 2021. 07:47 Method Of Arrival: Ambulatory ss 07:47 Acuity: EYAD 3 ss Triage Assessment: 08:35 General: Appears in no apparent distress. well groomed, well developed, Behavior is sl2 calm, cooperative, appropriate for age, Reports persistent non-productive cough. 08:35 Pain: Denies pain. Respiratory: Reports cough that is Airway is patent Trachea midline sl2 Respiratory effort is even, unlabored, Respiratory pattern is regular, symmetrical, Breath sounds are clear bilaterally. Historical: - Allergies: 07:49 No Known Allergies; ss - Home Meds: 07:49 tacrolimus oral [Active]; Prednisone Oral [Active]; Magnesium Oxide Oral [Active]; ss pantoprazole oral [Active]; - PMHx: 07:52 Heart failure; ss - PSHx: 07:49 Heart transplant October 2020 ([facility]); ss - Immunization history:: Client reports having NOT received the Covid vaccine. - Social history:: Smoking status: Patient denies any tobacco usage or history of. Screenin:35 Abuse screen: Denies threats or abuse. Denies injuries from another. sl2 08:35 Nutritional screening: No deficits noted. Tuberculosis screening: No symptoms or risk sl2 factors identified. Fall Risk None identified. Vital Signs: 07:47 BP 107 / 75; Pulse 110; Resp 17; Temp 98.0(TE); Pulse Ox 100% on R/A; Weight 58.97 kg; ss Height 5 ft. 3 in. (160.02 cm); Pain 0/10; 08:30 BP 111 / 76; Pulse 105; Resp 18; Temp 98.2; Pulse Ox 100% ; sl2 11:30 BP 108 / 74; Pulse 99; Resp 18; Temp 98.4; Pulse Ox 100% ; sl2 07:47 Body Mass Index 23.03 (58.97 kg, 160.02 cm) ss ED Course: 07:42 Patient arrived in ED. ds1 07:49 Triage completed. ss 07:49 Arm band placed on right wrist. ss 08:04 COVID-19/FLU A+B (Document "Date of Onset" if Symptomatic) Sent. ss 08:35 Patient has correct armband on for positive identification. sl2 08:35 Patient did not have IV access during this emergency room visit. sl2 09:13 XRAY Chest (1 view) In Process Unspecified. EDMS 09:59 Troy Tello PA is PHCP. cp 09:59 Yuri Hackett MD is Attending Physician. cp 10:25 Troy Padgett MD is Attending Physician. cp 11:14 Peggy Oglesby, LEONARDO is Primary Nurse. sl2 11:57 No provider procedures requiring assistance completed. sl2 Administered Medications: 10:26 CANCELLED (Physician Discretion): Zofran (Ondansetron) 4 mg IVP once; over 2 minutes 11:18 Drug: Tessalon Perle (benzonatate) 100 mg Route: PO; sl2 11:50 Follow up: Response: No adverse reaction sl2 11:18 Drug: Ondansetron 4 mg Route: PO; sl2 11:50 Follow up: Response: No adverse reaction sl2 Outcome: 10:32 Discharge ordered by MD. cp 11:57 Discharged to home ambulatory. sl2 11:57 Condition: stable 11:57 Discharge instructions given to patient, Instructed on discharge instructions, follow up and referral plans. medication usage, Demonstrated understanding of instructions, medications, Prescriptions given X 4. 12:00 Patient left the ED. sl2 Signatures: Dispatcher [employer] EDAK Chrissie Donovan Yomaira Gold, RN RN Troy Farley PA PA cp Landell, Sophia RN RN sl2
--- NOTE | 2021-03-31 10:32 | EDPHYS ---
Physician Documentation [facility] Name: Terra Hutchnison Age: 60 yrs Sex: Female : 1960 Arrival Date: 03/31/2021 Time: 07:42 Bed 20 Private MD: ED Physician Troy Padgett HPI: 03/31 09:45 This 60 yrs old Female presents to ER via Ambulatory with complaints of Congestion, cp Cough. 09:45 The patient or guardian reports cough, with no sputum. cp 09:45 Onset: The symptoms/episode began/occurred 5 day(s) ago. Associated signs and symptoms: cp Pertinent negatives: chest pain, diarrhea, fever, vomiting. Severity of symptoms: in the emergency department the symptoms are unchanged despite home interventions. Historical: - Allergies: 07:49 No Known Allergies; ss - Home Meds: 07:49 tacrolimus oral [Active]; Prednisone Oral [Active]; Magnesium Oxide Oral [Active]; ss pantoprazole oral [Active]; - PMHx: 07:52 Heart failure; ss - PSHx: 07:49 Heart transplant October 2020 ([facility]); ss - Immunization history:: Client reports having NOT received the Covid vaccine. - Social history:: Smoking status: Patient denies any tobacco usage or history of. ROS: 09:50 Constitutional: Negative for body aches, chills, fever, poor PO intake. cp 09:50 Cardiovascular: Negative for chest pain, edema, palpitations. cp 09:50 Respiratory: Positive for cough, with no reported sputum, Negative for shortness of breath, wheezing. 09:50 Abdomen/GI: Positive for nausea, Negative for abdominal pain, vomiting, diarrhea, constipation. Exam: 09:55 Constitutional: The patient appears in no acute distress, alert, awake, cp non-diaphoretic, non-toxic, well developed, well nourished. 09:55 Head/Face: Normocephalic, atraumatic. cp 09:55 Eyes: Periorbital structures: appear normal, Conjunctiva: normal, no exudate, no injection, Sclera: no appreciated abnormality, Lids and lashes: appear normal, bilaterally. 09:55 ENT: External ear(s): are unremarkable, Nose: is normal, Mouth: Lips: moist, Oral mucosa: moist, Posterior pharynx: Airway: no evidence of obstruction, patent. 09:55 Neck: ROM/movement: is normal, is supple, without pain, no range of motions limitations. 09:55 Chest/axilla: Inspection: normal. 09:55 Cardiovascular: Rate: tachycardic, Rhythm: regular, Edema: is not appreciated, JVD: is not appreciated. 09:55 Respiratory: the patient does not display signs of respiratory distress, Respirations: normal, no use of accessory muscles, no retractions, Breath sounds: decreased breath sounds, that are mild, throughout, stridor, is not appreciated, wheezing: is not appreciated. 09:55 Abdomen/GI: Inspection: abdomen appears normal, Palpation: abdomen is soft and non-tender, in all quadrants. 09:55 Neuro: Orientation: to person, place \\T\\ time. Mentation: is normal. Vital Signs: 07:47 BP 107 / 75; Pulse 110; Resp 17; Temp 98.0(TE); Pulse Ox 100% on R/A; Weight 58.97 kg; ss Height 5 ft. 3 in. (160.02 cm); Pain 0/10; 08:30 BP 111 / 76; Pulse 105; Resp 18; Temp 98.2; Pulse Ox 100% ; sl2 11:30 BP 108 / 74; Pulse 99; Resp 18; Temp 98.4; Pulse Ox 100% ; sl2 07:47 Body Mass Index 23.03 (58.97 kg, 160.02 cm) ss MDM: 10:00 Patient medically screened. cp 10:00 Differential diagnosis: bronchitis, flu, COVID-19, pneumonia. cp 10:31 Data reviewed: vital signs, nurses notes, lab test result(s), radiologic studies, plain cp films. 10:31 Test interpretation: by ED physician or midlevel provider: plain radiologic studies. cp Counseling: I had a detailed discussion with the patient and/or guardian regarding: the historical points, exam findings, and any diagnostic results supporting the discharge/admit diagnosis, lab results, radiology results, to return to the emergency department if symptoms worsen or persist or if there are any questions or concerns that arise at home. ED course: VSS. Patient appears non-toxic and no signs of respiratory distress. Patient with history of heart transplant surgery and taking immunosuppressive medications, so will prescribed Z-babatunde. Patient instructed to f/u or return to ED worsening symptoms. 03/31 07:53 Order name: COVID-19/FLU A+B (Document "Date of Onset" if Symptomatic) ss 03/31 07:54 Order name: COVID-19/FLU A+B; Complete Time: 10:21 EDMS 03/31 10:22 Interpretation: Reviewed. cp 03/31 07:53 Order name: XRAY Chest (1 view); Complete Time: 10:21 ss 03/31 10:21 Interpretation: Report reviewed. cp Administered Medications: 10:26 CANCELLED (Physician Discretion): Zofran (Ondansetron) 4 mg IVP once; over 2 minutes ss 11:18 Drug: Tessalon Perle (benzonatate) 100 mg Route: PO; sl2 11:50 Follow up: Response: No adverse reaction sl2 11:18 Drug: Ondansetron 4 mg Route: PO; sl2 11:50 Follow up: Response: No adverse reaction sl2 Disposition: 10:45 Chart complete. cp 04/01 09:05 Co-signature as Attending Physician, Troy Padgett MD I agree with the assessment and david plan of care. Disposition Summary: 03/31/21 10:32 Discharge Ordered Location: Home cp Problem: new cp Symptoms: have improved cp Condition: Stable cp Diagnosis - Acute bronchitis, unspecified cp Followup: cp - With: Private Physician - When: 2 - 3 days - Reason: Worsening of condition Discharge Instructions: - Discharge Summary Sheet cp - Acute Bronchitis, Adult cp Forms: - Medication Reconciliation Form cp - Thank You Letter cp - Antibiotic Education cp - Prescription Opioid Use cp Prescriptions: - albuterol sulfate 90 mcg/actuation Inhalation HFA aerosol inhaler - inhale 1 puff by INHALATION route every 4-6 hours; 1 Inhaler; Refills: 0, cp Product Selection Permitted - Tessalon Perles 100 mg Oral Capsule - take 1 capsule by ORAL route every 8 hours As needed; 15 capsule; Refills: 0, cp Product Selection Permitted - Zithromax Z-Babatunde 250 mg Oral Tablet - take 1 tablet by ORAL route as directed for 5 days Day 1 - take two (2) tablets cp one time. Day 2, 3, 4 , 5 take one (1) tablet once daily.; 6 tablet; Refills: 0, Product Selection Permitted - Zofran 4 mg Oral Tablet - take 1 tablet by ORAL route every 12 hours As needed; 20 tablet; Refills: 0, cp Product Selection Permitted Signatures: Dispatcher [employer] EDTroy Tamayo MD MD cha Smirch, Shelby RN RN ss Troy Tello PA PA cp Pegyg Oglesby RN RN sl2 Corrections: (The following items were deleted from the chart) 03/31 10:26 10:04 Zofran (Ondansetron) 4 mg IVP once; over 2 minutes ordered. cp ss
[2021-03-31] MEDS ORDERED: ONDANSETRON 4 MG (ODT) TAB ONE (11:18)
[2021-03-31] MEDS ORDERED: BENZONATATE 100 MG CAP PO ONE (11:18)
[2021-03-31] MEDS ORDERED: FUROSEMIDE 20 MG/ 2ML VIAL ONE (11:19)
[2021-03-31 12:06] VITALS: O2SAT 100
[2021-03-31 12:08] VITALS: BP 111/76; TEMP 98.2
== END 2021-03-31 12:00 | disposition home or self-care (01) ==
LOC: ER 07:38
DX: J20.9 Acute bronchitis, unspecified (principal); Z94.1 Heart transplant status; Z20.822 Contact with and (suspected) exposure to COVID-19
CPT/HCPCS: 0240U; 71045; 99284; J1940

== ENCOUNTER 2021-05-07 07:39 | Emergency (ER) | payer OTHER ==
--- OUTSIDE RECORDS SUMMARY | 2021-05-07 07:42 | XMS REPORT | Continuity of Care Document ---
:1960 Author Organization [facility] t Address [address] [place] [address] Care Team Providers Name Role Phone Ashlee ALLRED Attending Clinician Unavailable Ashlee ALLRED Attending Clinician Unavailable Janneth LIRA Attending Clinician Unavailable Jason DUMONT Attending Clinician Unavailable CLARISSA Attending Clinician Unavailable OSIRIS GRANT Attending Clinician Unavailable DESIRAE CLARKE Attending Clinician Unavailable Cristina UNDERWOOD, Not In Attending Clinician Unavailable JASON COSME Attending Clinician Unavailable DESIRAE CLARKE Attending Clinician Unavailable Sanjiv MILLER Attending Clinician Unavailable BRENDA Attending Clinician Unavailable Ashlee ALLRED Admitting Clinician Unavailable CLARISSA Admitting Clinician Unavailable OSIRIS GRANT Admitting Clinician Unavailable DESIRAE CLARKE Admitting Clinician Unavailable JASON COSME Admitting Clinician Unavailable Sanjiv MILLER Admitting Clinician Unavailable Payers Payer Name Policy Type Policy Number Effective Date Expiration Date Maribell jeronimo MARTINEZ [id number] 2020 HEALTH PLAN 00:00:00 [employer] [id number] 2020 SOLUTIONS 00:00:00 Problems Condition Condition Condition [...] kes - sterolemia sterolemia Me moria l [facility] Breast Breast Problem Active [facility] screening screening Enrique cuauhtemoc l [facility] Encounter Encounter Problem Active [facility] - general general [facility] adult adult l medical medical Outpati examinatio examinatio en t n without n without Clin ics abnormal abnormal findings findings Reactive Reactive Problem Active [facility] depression Luisa kes - [facility] Adjustment Adjustment Problem Active [facility] Allergies, Adverse Reactions, Alerts Allergy Allergy Status Severity Reaction(s) Onset Inactive Treating Comm ents Source Name Type Date Date Clinician NO KNOWN Drug Active Univers ALLERGIE Class it[facility] of [facility] Social History Social Habit Start Date Stop Date Quantity Comments Source Sex Assigned At [birth year] [place] [facility] 00:00:00 00:00:00 Smoking Status Start Date Stop Date Source Tobacco smoking consumption unknown [facility] Medications Ordered Filled Start Stop Current Ordering Indication Dosage Frequency Signature Comments Components Source Medication Medication Date Date Medication? Clinician (SIG) Name Name BuPROPion BuPROPion 2018-05 Yes Sugey [address] [facility] HCl ER (SR) HCl ER (SR) 2-04 [place] in the [facility] - 00:[facility]: morning [facility] 00 l [facility] Milk Milk Yes Sugey not [facility] Thistle Thistle [place] defined [facility] Red Yeast Red Yeast Yes Sugey not [facility] [place] [facility] HydrOXYzine HydrOXYzine Yes Sugey [address] [facility] HCl HCl [place] as needed [facility] Multivitami Multivitami Yes Sugey not [facility] n n [place] defined [facility] Vital Signs Vital Name Observation Time Observation Value Comments Source Body height 2020-12-09 16:06:08 160 [facility] Body weight 2020-12-09 16:06:08 [facility] BMI 2020-12-09 16:06:08 21.48 kg[facility]m2 [facility] Procedures Procedure Date / Time Performed Performing Clinician Sour e E[facility] 2021-02-23 13:53:04 System, Provider Not I n [facility] Encounters Start End Encounter Admission Attending Care Care Encounter Source Date/Time Date/Time Type Type Clinicians Facility Department ID 2021-05-04 Outpatient GUY [facility] [id number] [place] 01:04:02 [facility] 2021-04-27 Outpatient GUY, [facility] [id number] [facility] 16:02:33 [facility] 2021-01-02 Outpatient GUY, [facility] [id number] [place] 01:06:31 [facility] 2020-12-29 Inpatient U GUY, [facility] [id number] [facility] 18:58:37 [facility] 2020-12-26 Outpatient GUY, [facility] [id number] [place] 01:06:09 [facility] 2020-12-25 Outpatient SORAYA [facility] [id number] [place] 01:04:02 [facility] 2020-12-12 Outpatient GUY, [facility] [id number] [facility] 16:37:42 [facility] 2020-12-12 Outpatient GUY, [facility] [id number] [facility] 12:44:57 [facility] 2020-12-08 Outpatient ADOLFO [facility] [id number] [facility] 10:03:04 [place] 2020-11-27 Outpatient GUY, [facility] [id number] [facility] 07:37:57 [facility] 2020-11-26 Inpatient CLARISSA, [facility] [id number] [facility] 19:04:48 [facility] 2021-04-03 2021-05-01 Outpatient GUY, [facility] [id number] [facility] 08:32:00 18:00:00 [facility] 2021-04-20 2021-04-20 Outpatient GUY, [facility] [id number] [facility] 08:20:00 23:59:00 [facility] 2021-04-03 2021-04-04 Inpatient Ana GRANT, [facility] [id number] [facility] 15:32:00 18:38:00 STEVEN 2021-03-23 2021-03-23 Outpatient GUY, [facility] [id number] [facility] 07:25:00 23:59:00 [facility] 2021-02-02 2021-03-03 Outpatient GUY [facility] [id number] [facility] 09:24:00 23:59:00 [facility] 2021-02-23 2021-02-23 EXT M[facility] OP Guy, EXT MSRDP [id number] [place] 00:00:00 00:00:00 [facility] F LOCATION [id number] Health [id number] 2021-02-17 2021-02-17 Outpatient GUY [facility] [id number] [facility] 05:20:00 10:12:00 [facility] 2021-02-02 2021-02-02 Outpatient GUY [facility] [id number] [facility] 07:27:00 23:59:00 [facility] 2021-01-06 2021-01-21 Inpatient U TRICIA, [facility] [id number] [facility] 20:19:00 15:00:00 JOHN 2020-12-22 2021-01-20 Outpatient GUY, [facility] [id number] [facility] 09:16:00 23:59:00 [facility] 2021-01-19 2021-01-19 Office Guy, EXT MSRDP [id number] [place] 08:40:00 09:00:00 Visit [facility] LOCATION [id number] Health [id number] 2021-01-06 2021-01-06 Outpatient GUY [facility] [id number] [facility] 05:16:00 10:30:00 [facility] 2020-12-30 2020-12-30 Outpatient GUY [facility] [id number] [facility] 07:08:00 12:05:00 [facility] 2020-12-30 2020-12-30 EXT [facility] System, EXT MSRDP [id number] [place] 00:00:00 00:00:00 Provider LOCATION [id number] Health Not In [id number] 2020-12-23 2020-12-26 Inpatient U GUY [facility] [id number] [facility] 21:52:00 15:05:00 MARWAN 2020-12-23 2020-12-23 Outpatient GUY [facility] [id number] [facility] 06:05:00 11:50:00 MARWAN 2020-12-22 2020-12-22 EXT [facility] OP Guy, EXT MSRDP [id number] [place] 00:00:00 00:00:00 Marwan F LOCATION [id number] Health [id number] 2020-12-10 2020-12-17 Inpatient U CARMELINA [facility] [id number] [facility] 12:58:00 17:00:00 JIGNESH 2020-12-17 2020-12-17 EXT [facility] OP Guy, EXT MSRDP [id number] [place] 00:00:00 00:00:00 Marwan F LOCATION [id number] Health [id number] 2020-12-11 2020-12-11 EXT [facility] OP Guy, EXT MSRDP [id number] [place] 00:00:00 00:00:00 Marwan F LOCATION [id number] Health [id number] 2020-12-11 2020-12-11 EXT [facility] OP Guy, EXT MSRDP [id number] [place] 00:00:00 00:00:00 Marwan F LOCATION [id number] Health [id number] 2020-12-11 2020-12-11 EXT [facility] OP Guy, EXT MSRDP [id number] [place] 00:00:00 00:00:00 Marwan F LOCATION [id number] Health [id number] 2020-12-11 2020-12-11 EXT MH OP Soniamean, EXT MSRDP [id number] [place] 00:00:00 00:00:00 Marwan F LOCATION [id number] Health [id number] 2020-12-09 2020-12-09 Outpatient GUY, [facility] [id number] [facility] 09:26:00 23:59:00 MARWAN 2020-12-09 2020-12-09 Outpatient TRICIA, [facility] [id number] [facility] 10:35:00 17:45:00 ZAMZAM 2020-12-09 2020-12-09 EXT MH OP Soniamemarcial, EXT MSRDP [id number] [place] 00:00:00 00:00:00 Marwan F LOCATION [id number] Health [id number] 2020-12-08 2020-12-08 EXT [facility] OP Soniamean, EXT MSRDP [id number] [place] 00:00:00 00:00:00 Marwan F LOCATION [id number] Health [id number] 2020-11-01 2020-12-05 Inpatient E CADE [facility] [id number] [facility] 20:49:00 18:07:00 CE CROWDER 2020-07-29 2020-07-29 Outpatient Sanjiv GUTIERREZ [facility] [id number] [facility] 08:40:00 08:40:00 MANE hoff [facility] 2020-07-29 2020-07-29 Outpatient [facility] [id number] Univers 08:40:00 08:40:00 [id number] luis eduardo [facility] 2020-07-28 2020-07-28 Outpatient Sanjiv GUTIERREZ [facility] [id number] Univers 14:20:00 14:20:00 MANE hoff [facility] 2019-10-08 2019-10-08 [facility] [id number] [facility] 14:00:00 14:00:00 t [facility] Medicine Outpati ent Clinics 2019-07-16 2019-07-16 [facility] [id number] [facility] 16:40:00 16:40:00 t [facility] Medicine Outpati ent Clinics 2019-06-29 2019-06-29 [facility] [id number] [facility] 11:31:00 11:31:00 t [facility] Medicine Outpati ent Clinics 2019-05-04 2019-05-04 [facility] [id number] [facility] 08:20:00 08:20:00 t [facility] Medicine Medicine Outpati ent Clinics 2019-04-04 2019-04-04 [facility] [id number] [facility] 16:40:00 16:40:00 t [facility] Medicine Medicine Outpati ent Clinics 2019-03-13 2019-03-13 [facility] [id number] [facility] 16:00:00 16:00:00 t [facility] Medicine Outpati ent Clinics 2019-01-02 2019-01-02 [facility] [id number] 10:45:00 10:45:00 [facility] 2018-10-21 2018-10-21 [facility] [id number] [facility] 17:00:00 17:00:00 [facility] 2018-10-11 2018-10-11 [facility] [id number] [facility] 13:53:00 13:53:00 t [facility] Medicine Medicine Outpati ent Clinics 2018-08-14 2018-08-14 [facility] [id number] [facility] 09:30:00 09:30:00 t [facility] Outpati ent Clinics 2018-06-07 2018-06-07 [facility] [id number] [facility] 14:45:00 14:45:00 t Urgent Ur[facility] 2018-01-04 2018-01-04 [facility] [id number] [facility] 14:10:00 14:10:00 t [facility] 2018-01-03 2018-01-03 [facility] [id number] [facility] 14:30:00 14:30:00 t [facility] 2017-09-28 2017-09-28 [facility] [id number] 13:55:00 13:55:00 t [facility] Medicine Outpati ent Clinics 2017-08-16 2017-08-16 [facility] [id number] 15:30:00 15:30:00 t [facility] Medicine Outpati ent Clinics 2017-08-16 2017-08-16 [facility] [id number] 11:50:00 11:50:00 [facility] Results This patient has no known results.
[2021-05-07 09:17] LABS: SARS-COV-2 RT PCR NEGATIVE (NEGATIVE)
--- NOTE | 2021-05-07 09:28 | RAD REPORT ---
EXAM DESCRIPTION: Misti Logan And Emil (2 Views)05/07/2021 9:19 am CLINICAL HISTORY: Cough COMPARISON: March 2021 FINDINGS: Postsurgical changes involve the chest. The lungs appear clear of acute infiltrate. The heart is normal size IMPRESSION: No acute abnormalities displayed
--- NOTE | 2021-05-07 10:00 | ER ---
Nurse's Notes [facility] Name: Terra Hutchinson Age: 60 yrs Sex: Female : 1960 Arrival Date: 05/07/2021 Time: 07:45 Bed 4 Private MD: Diagnosis: Acute bronchitis, unspecified Presentation: 05/07 08:00 Chief complaint: Patient states: cough and congestion x 1 week with nausea; states vg1 'feels like cough is getting worse'. Denies vomiting/diarrhea and sore throat. States did a covid test last week and results were negative. Also states did not get the covid vaccines due to heart transplant in October 2020. Coronavirus screen: Vaccine status: Patient reports being unvaccinated. Client denies travel out of the [place] in the last 14 days. Client presents with at least one sign or symptom that may indicate coronavirus-19. Standard/surgical mask placed on the client. Ebola Screen: Patient negative for fever greater than or equal to 101.5 degrees Fahrenheit, and additional compatible Ebola Virus Disease symptoms. Initial Sepsis Screen: Does the patient meet any 2 criteria? No. Patient's initial sepsis screen is negative. Does the patient have a suspected source of infection? No. Patient's initial sepsis screen is negative. Risk Assessment: Do you want to hurt yourself or someone else? Patient reports no desire to harm self or others. Onset of symptoms was April 30, 2021. 08:00 Method Of Arrival: Ambulatory vg1 08:00 Acuity: EYAD 3 vg1 Triage Assessment: 08:03 General: Appears in no apparent distress. comfortable, Behavior is calm, cooperative. vg1 Pain: Denies pain. Respiratory: Reports cough that is productive, Airway is patent Respiratory effort is even, unlabored. Historical: - Allergies: 08:03 No Known Allergies; vg1 - Home Meds: 08:03 tacrolimus Oral [Active]; Prednisone Oral [Active]; pantoprazole Oral [Active]; vg1 Magnesium Oxide Oral [Active]; Jardiance oral [Active]; - PMHx: 08:03 HEART FAILURE; Diabetes mellitus; vg1 - PSHx: 08:03 Heart transplant October 2020 ([facility]); vg1 - Immunization history:: Client reports having NOT received the Covid vaccine. - Social history:: Smoking status: Patient denies any tobacco usage or history of. - Family history:: not pertinent. Screenin:15 Abuse screen: Denies threats or abuse. Denies injuries from another. Nutritional jl7 screening: No deficits noted. Tuberculosis screening: No symptoms or risk factors identified. Fall Risk None identified. Assessment: 10:15 General: Appears in no apparent distress. uncomfortable, Behavior is calm, cooperative, jl7 appropriate for age. Pain: Denies pain. Neuro: Level of Consciousness is awake, alert, obeys commands, Oriented to person, place, time, situation. Cardiovascular: Patient's skin is warm and dry. Respiratory: Airway is patent Respiratory effort is even, unlabored, Respiratory pattern is regular, symmetrical. Derm: Skin is pink, warm \\T\\ dry. Vital Signs: 08:00 BP 109 / 74; Pulse 106; Resp 17; Temp 98.2; Pulse Ox 100% ; Weight 58.97 kg; Height 5 vg1 ft. 3 in. (160.02 cm); Pain 0/10; 10:15 BP 127 / 77; Pulse 100; Resp 19; Temp 98.1(O); Pulse Ox 99% on R/A; jl7 08:00 Body Mass Index 23.03 (58.97 kg, 160.02 cm) vg1 ED Course: 07:45 Patient arrived in ED. mr 08:03 Triage completed. vg1 08:03 Arm band placed on. vg1 08:09 COVID swab sent to lab. Flu and/or RSV swab sent to lab. vg1 08:31 COVID-19/FLU A+B (Document "Date of Onset" if Symptomatic) Sent. ss 09:19 Chest Pa And Lat (2 Views) XRAY In Process Unspecified. EDMS 09:54 Dana Billingsley MD is Attending Physician. ma2 10:11 Sukhi Castro RN is Primary Nurse. jl7 10:15 Patient has correct armband on for positive identification. jl7 10:24 No provider procedures requiring assistance completed. Patient did not have IV access jl7 during this emergency room visit. Administered Medications: 10:15 Drug: AZITHromycin 500 mg Route: PO; jl7 10:25 Follow up: Response: Medication administered at discharge. jl7 10:15 Drug: Tessalon Perle (benzonatate) 200 mg Route: PO; jl7 10:24 Follow up: Response: Medication administered at discharge. jl7 Outcome: 10:00 Discharge ordered by . tc 10:24 Discharged to home ambulatory. jl7 10:24 Condition: stable 10:24 Discharge instructions given to patient, Instructed on discharge instructions, follow up and referral plans. medication usage, Demonstrated understanding of instructions, follow-up care, medications, Prescriptions given X 3. 10:25 Patient left the ED. jl7 Signatures: Dispatcher [employer] [facility] PrasadNancy Shelby, RN RN ss Sukhi Castro RN RN jl7 Dana Billingsley MD MD ma2 Garcia, Victoria RN RN vg1
--- NOTE | 2021-05-07 10:00 | EDPHYS ---
Physician Documentation [facility] Name: Terra Hutchinson Age: 60 yrs Sex: Female : 1960 Arrival Date: 05/07/2021 Time: 07:45 Bed 4 Private MD: ED Physician Dana Billingsley HPI: 05/07 09:59 This 60 yrs old Female presents to ER via Ambulatory with complaints of Cough, ma2 Congestion. 09:59 Onset: The symptoms/episode began/occurred gradually, 1 day(s) ago. Severity of ma2 symptoms: At their worst the symptoms were mild, in the emergency department the symptoms are unchanged. Associated signs and symptoms: Pertinent positives: rhinorrhea, Pertinent negatives: ear ache, nausea, sore throat. The patient has not experienced similar symptoms in the past. Historical: - Allergies: 08:03 No Known Allergies; vg1 - Home Meds: 08:03 tacrolimus Oral [Active]; Prednisone Oral [Active]; pantoprazole Oral [Active]; vg1 Magnesium Oxide Oral [Active]; Jardiance oral [Active]; - PMHx: 08:03 HEART FAILURE; Diabetes mellitus; vg1 - PSHx: 08:03 Heart transplant October 2020 ([facility]); vg1 - Immunization history:: Client reports having NOT received the Covid vaccine. - Social history:: Smoking status: Patient denies any tobacco usage or history of. - Family history:: not pertinent. ROS: 09:59 Constitutional: Negative for fever, chills, and weight loss. ma2 09:59 All other systems are negative. Exam: 09:59 Constitutional: This is a well developed, well nourished patient who is awake, alert, ma2 and in no acute distress. Head/Face: Normocephalic, atraumatic. Eyes: Pupils equal round and reactive to light, extra-ocular motions intact. Lids and lashes normal. Conjunctiva and sclera are non-icteric and not injected. Cornea within normal limits. Periorbital areas with no swelling, redness, or edema. ENT: Nares patent. No nasal discharge, no septal abnormalities noted. Tympanic membranes are normal and external auditory canals are clear. Oropharynx with no redness, swelling, or masses, exudates, or evidence of obstruction, uvula midline. Mucous membranes moist. Neck: Trachea midline, no thyromegaly or masses palpated, and no cervical lymphadenopathy. Supple, full range of motion without nuchal rigidity, or vertebral point tenderness. No Meningismus. Chest/axilla: Normal chest wall appearance and motion. Nontender with no deformity. No lesions are appreciated. Cardiovascular: Regular rate and rhythm with a normal S1 and S2. No gallops, murmurs, or rubs. Normal PMI, no JVD. No pulse deficits. Respiratory: Lungs have equal breath sounds bilaterally, clear to auscultation and percussion. No rales, rhonchi or wheezes noted. No increased work of breathing, no retractions or nasal flaring. Abdomen/GI: Soft, non-tender, with normal bowel sounds. No distension or tympany. No guarding or rebound. No evidence of tenderness throughout. Skin: Warm, dry with normal turgor. Normal color with no rashes, no lesions, and no evidence of cellulitis. MS/ Extremity: Pulses equal, no cyanosis. Neurovascular intact. Full, normal range of motion. Neuro: Awake and alert, GCS 15, oriented to person, place, time, and situation. Cranial nerves II-XII grossly intact. Motor strength 5/5 in all extremities. Sensory grossly intact. Cerebellar exam normal. Normal gait. Vital Signs: 08:00 BP 109 / 74; Pulse 106; Resp 17; Temp 98.2; Pulse Ox 100% ; Weight 58.97 kg; Height 5 vg1 ft. 3 in. (160.02 cm); Pain 0/10; 10:15 BP 127 / 77; Pulse 100; Resp 19; Temp 98.1(O); Pulse Ox 99% on R/A; jl7 08:00 Body Mass Index 23.03 (58.97 kg, 160.02 cm) vg1 MDM: 09:54 Patient medically screened. ma2 09:59 Differential Diagnosis: Bronchitis Influenza Upper Respiratory Infection Sinusitis ma2 Pharyngitis. Data reviewed: vital signs, nurses notes. Counseling: I had a detailed discussion with the patient and/or guardian regarding: the historical points, exam findings, and any diagnostic results supporting the discharge/admit diagnosis, the presence of at least one elevated blood pressure reading (>120/80) during this emergency department visit, the need for outpatient follow up. Response to treatment: the patient's symptoms have markedly improved after treatment. 05/07 08:09 Order name: COVID-19/FLU A+B (Document "Date of Onset" if Symptomatic); Complete Time: vg1 09:43 01 08:09 Order name: Chest Pa And Lat (2 Views) XRAY; Complete Time: 09:43 vg1 Administered Medications: 10:15 Drug: AZITHromycin 500 mg Route: PO; jl7 10:25 Follow up: Response: Medication administered at discharge. jl7 10:15 Drug: Tessalon Perle (benzonatate) 200 mg Route: PO; jl7 10:24 Follow up: Response: Medication administered at discharge. jl7 Disposition Summary: 05/07/21 10:00 Discharge Ordered Location: Home ma2 Condition: Stable ma2 Diagnosis - Acute bronchitis, unspecified ma2 Followup: ma2 - With: Private Physician - When: Tomorrow - Reason: If symptoms return, Continuance of care Discharge Instructions: - Discharge Summary Sheet ma2 - Acute Bronchitis, Adult ma2 Forms: - Medication Reconciliation Form ma2 - Thank You Letter ma2 - Antibiotic Education ma2 - Prescription Opioid Use ma2 Prescriptions: - Tessalon Perles 100 mg Oral Capsule - take 1 capsule by ORAL route every 8 hours As needed; 15 capsule; Refills: 0, ma2 Product Selection Permitted - Diclofenac Sodium 75 mg Oral Tablet Sustained Release - take 1 tablet by ORAL route 2 times per day; 30 tablet; Refills: 0, Product ma2 Selection Permitted - Zithromax Z-Babatunde 250 mg Oral Tablet - take 1 tablet by ORAL route as directed for 5 days Day 1 - take two (2) tablets ma2 one time. Day 2, 3, 4 , 5 take one (1) tablet once daily.; 6 tablet; Refills: 0, Product Selection Permitted Signatures: Dispatcher [employer] EDIgnacio Neal PA PA [id number] Sukhi Castro RN RN jl7 Dana Billingsley MD MD ma2 Mamie Marshall RN RN vg1
[2021-05-07] MEDS ORDERED: AZITHROMYCIN 250 MG TAB ONE (10:14)
[2021-05-07] MEDS ORDERED: BENZONATATE 100 MG CAP PO ONE (10:14)
[2021-05-07 10:31] VITALS: BP 127/77; TEMP 98.1; O2SAT 99
== END 2021-05-07 10:25 | disposition home or self-care (01) ==
LOC: ER 07:39
DX: J20.9 Acute bronchitis, unspecified (principal); Z20.822 Contact with and (suspected) exposure to COVID-19; E11.9 Type 2 diabetes mellitus without complications; Z94.1 Heart transplant status
CPT/HCPCS: 0240U; 71046; 99284

== ENCOUNTER 2023-01-15 08:17 | Emergency (ER) | payer OTHER ==
--- OUTSIDE RECORDS SUMMARY | 2023-01-15 08:21 | XMS REPORT | Continuity of Care Document ---
:1960 Author Organization [facility] t Address [address] [place] [place] [address] Care Team Providers Name Role Phone DayanaBindua Attending Clinician Unavailable SUMAN ALLRED Attending Clinician Unavailable SUMAN ALLRED Attending Clinician Unavailable OSEI MOHAMUD Attending Clinician Unavailable TEE DUMONT Attending Clinician Unavailable MAXWELL LIRA Attending Clinician Unavailable AWILDA ROMO Attending Clinician Unavailable GAETANO ROCKWELL Attending Clinician Unavailable JA RESENDIZ Attending Clinician Unavailable STEVEN GRANT Attending Clinician Unavailable JOHN CLARKE Attending Clinician Unavailable Cristina UNDERWOOD, Provider Not In Attending Clinician Unavailable JIGNESH COSME Attending Clinician Unavailable ZAMZAM CLARKE Attending Clinician Unavailable OSEI MILLER Attending Clinician Unavailable MANE GUTIERREZ Attending Clinician Unavailable SUMAN ALLRED Admitting Clinician Unavailable AWILDA ROMO Admitting Clinician Unavailable GAETANO ROCKWELL Admitting Clinician Unavailable STEVEN GRANT Admitting Clinician Unavailable JOHN CLARKE Admitting Clinician Unavailable JIGNESH COSME Admitting Clinician Unavailable OSEI MILLER Admitting Clinician Unavailable Payers Payer Name Policy Type Policy Number Effective Date Expiration Date Maribell MARTINEZ [id number] 2020 HEALTH PLAN 00:00:00 [employer] [id number] 2020 SOLUTIONS 00:00:00 Problems Condition Condition Condition Status Onset Resolution Last Treating Co mments Source Name Details Category Date Date Treatment Clinician Date Ganglion Ganglion Problem Active Commo n cyst cyst [facility] Allergic Allergic Problem Active Commo n rhinitis rhinitis [facility] Pure Pure Problem Active Common hyperchole hyperchole Sp bhaskar sterolemia sterolemia [facility] Breast Breast Problem Active Common cancer cancer [facility] screening screening - CH I [facility] Encounter Encounter Problem Active Com mon for for [facility] general [facility] adult adult [facility] examinatio examinatio Me dical n without n without Cent er abnormal abnormal findings findings Reactive Reactive Problem Active Commo n depression depression Sp bhaskar [facility] Adjustment Adjustment Problem Active C ommon insomnia insomnia [facility] Allergies, Adverse Reactions, Alerts Allergy Allergy Status Severity Reaction(s) Onset Inactive Treating Comm ents Source Name Type Date Date Clinician NO KNOWN Drug Active Univers ALLERGIE Class ity of S [facility] Social History Social Habit Start Date Stop Date Quantity Comments Source Sex Assigned At [birth year] [place] [facility] 00:00:00 00:00:00 Smoking Status Start Date Stop Date Source Tobacco smoking consumption unknown [facility] Medications Ordered Filled Start Stop Current Ordering Indication Dosage Frequency Signature Comments Components Source Medication Medication Date Date Medication? Clinician (SIG) Name Name BuPROPion BuPROPion 2018-05 Yes Sugey 2 tablet Common HCl ER (SR) HCl ER (SR) 2-04 [place] [facility] 00:00: morning - [facility] Milk Milk Yes Sugey not Common Thistle Thistle [place] defined Spiri t [facility] Red Yeast Red Yeast Yes Sugey not Comm on [place] Rice [place] defined [facility] HydrOXYzine HydrOXYzine Yes Sugey 1 tablet Common HCl HCl [place] as needed [facility] Multivitami Multivitami Yes Sugey not Common n n [place] defined [facility] Vital Signs Vital Name Observation Time Observation Value Comments Source Body height 2020-12-09 16:06:08 [facility] weight 2020-12-09 16:06:08 [facility] BMI 2020-12-09 16:06:08 21.48 kg/m2 [facility] Body height 2020-12-09 16:06:08 160 [facility] weight 2020-12-09 16:06:08 55 [facility] BMI 2020-12-09 16:06:08 21.48 kg/m2 [facility] Body height 2020-12-09 16:06:08 160 [facility] Body weight 2020-12-09 16:06:08 55 [facility] BMI 2020-12-09 16:06:08 21.48 kg/m2 [facility] Body height 2020-12-09 16:06:08 160 [facility] Body weight 2020-12-09 16:06:08 55 [facility] BMI 2020-12-09 16:06:08 21.48 kg/m2 [facility] Procedures Procedure Date / Time Performed Performing Clinician [facility] e [facility] 2021-02-23 13:53:04 System, Provider Not I n [place] [facility] ECHO COMPLETE -CLINIC 2021-02-23 13:53:04 System, Provider Not I n [facility] Encounters Start End Encounter Admission Attending Care Care Encounter Source Date/Time Date/Time Type Type Clinicians Facility Department ID 2022-11-01 Outpatient [facility] [id number] [place] 07:08:27 [id number] [facility] 2022-10-10 Outpatient [facility] [id number] [place] 12:00:37 [id number] [facility] 2022-08-16 Outpatient DayanaSÁNCHEZ [facility] [id number] Common 14:32:00 Sugey [id number] [facility] 2022-07-25 Outpatient [place] [id number] [place] 13:16:30 [id number] [facility] 2022-07-16 Outpatient [place] [id number] UT 15:08:31 [id number] [facility] 2022-06-29 Outpatient SÁNCHEZ Anne [facility] [id number] Common 09:50:00 Sugey [id number] [facility] 2022-05-21 Outpatient [facility] [place] [id number] UT 10:28:48 [id number] [facility] 2022-05-12 Outpatient [place] [id number] UT 11:46:56 [id number] [facility] 2022-04-19 Outpatient [place] [id number] UT 07:17:37 [id number] [facility] 2022-04-08 Outpatient [facility] [id number] [place] 06:15:40 [id number] [facility] 2022-04-05 Outpatient [facility] [id number] [place] 07:23:36 [id number] [facility] 2022-03-01 Outpatient [facility] UT [id number] UT 15:30:12 [id number] [facility] 2022-02-22 Outpatient [place] UT [id number] UT 14:52:53 [id number] [facility] 2022-02-16 Outpatient [facility] [id number] [place] 11:50:55 [id number] [facility] 2022-02-10 Outpatient [facility] [id number] [place] 11:09:[id number] [place] [address] 2021-07-21 Outpatient JUMEAN, [facility] [id number] [facility] 12[facility]50:07 [facility] 2021-07-20 Outpatient JUMEAN, [facility] [id number] [place] 01:03:43 [facility] 2021-07-03 Outpatient CADE, [facility] [id number] [place] 01:01:28 [facility] 2021-06-22 Outpatient CARMENMEAN, [facility] [id number] [place] 01:03:13 [facility] 2021-05-27 Outpatient SÁNCHEZ Anne [facility] [id number] Common 11:24:03 Sugey [id number] [facility] 2021-05-22 Outpatient PATARROYO [facility] [id number] [facility] 15:30:36 TEE MANUEL 2021-05-18 Outpatient GUY, [facility] [id number] [place] 01:04:04 [facility] 2021-05-04 Outpatient MEIAN, [facility] [id number] [place] 01:04:02 [facility] 2021-01-02 Outpatient CARMENMEAN, [facility] [id number] [place] 01:06:31 [facility] 2020-12-29 Inpatient U GUY, [facility] [id number] MHH H 18:58:37 [facility] 2020-12-26 Outpatient GUY, [facility] [id number] [place] 01:06:09 [facility] 2020-12-25 Outpatient SORAYA, [facility] [id number] [place] 01:04:02 [facility] 2020-12-12 Outpatient GUY, [facility] [id number] [facility] 16:37:42 [facility] 2020-12-12 Outpatient GUY, [facility] [id number] [facility] HH 12:44:57 [facility] 2020-12-08 Outpatient PATARROYO [facility] [id number] [facility] 10:03:04 TEE MANUEL 2020-11-27 Outpatient GUY, [facility] [id number] [facility] HH 07:37:57 [facility] 2020-11-26 Inpatient CLARISSA, [facility] [id number] MHH H 19:04:48 AWILDA 2022-11-11 2022-12-10 Outpatient PATARROYO [facility] [id number] [facility] 09:14:00 23:59:00 Juancarlos MANUEL 2022-11-22 2022-11-22 Outpatient GUY, [facility] [id number] [facility] 07:47:00 23:59:00 [facility] 2022-11-17 2022-11-17 Outpatient GUY, [facility] [id number] [facility] 06:57:00 12:45:00 [facility] 2022-11-11 2022-11-11 Outpatient PATARROYO [facility] [id number] [facility] 09:14:00 09:14:00 MANUELTEE Perez 2022-09-16 2022-10-15 Outpatient PATARROYO [facility] [id number] MH 08:50:00 23:59:00 MANUELTEE Perez 2022-05-24 2022-06-22 Outpatient PATARROYO [facility] [id number] MHH 09:08:00 23:59:00 MANUELTEE Perez 2022-05-24 2022-05-24 Outpatient GUY, [facility] [id number] MH 10:06:00 23:59:00 [facility] 2022-03-31 2022-03-31 Outpatient [facility] [id number] Anup 08:54:13 08:54:13 [id number] Ashlee Parekh 2022-02-15 2022-03-16 Outpatient PATARRAVINASHO [facility] [id number] [facility] 10:48:00 23:59:00 TEE MANUEL 2022-02-15 2022-02-15 Outpatient GUY [id number] 09:35:00 23:59:00 [facility] 2022-02-15 2022-02-15 Outpatient GUY, [facility] [id number] [place] 09:20:00 09:20:00 [facility] 2022-01-27 2022-01-28 Inpatient E LULI, [facility] [id number] [facility] 06:01:00 18:20:00 GAETANO 2021-11-23 2021-12-22 Outpatient GUY [facility] [id number] [facility] 09:31:00 23:59:00 [facility] 2021-11-23 2021-12-22 Outpatient PATARROYO [facility] [id number] MH 08:20:00 23:59:00 MANUELTEE Perez 2021-11-23 2021-11-23 Outpatient GUY [facility] [id number] UT 11:00:00 11:00:00 [facility] 2021-11-17 2021-11-17 Outpatient GUY, [facility] [id number] MHH 05:05:00 11:45:00 [facility] 2021-11-06 2021-11-06 Outpatient JUMEAN, [facility] [id number] [facility] 08:50:00 23:59:[address] 2021-09-25 2021-10-24 Outpatient PATARRAVINASHO [facility] [id number] [facility] 09:14:00 23:59:00 TEE MANUEL 2021-10-05 2021-10-05 Outpatient JUMEAN, [facility] [id number] [facility] 11:25:00 23:59:[address] [facility] 2021-08-24 2021-08-24 Outpatient JUMEAN, [facility] [id number] [facility] 07:50:00 23:59:[address] 2021-08-11 2021-08-11 Outpatient JUMEAN, [facility] [id number] [facility] 05:20:00 10:30:[address] 2021-06-30 2021-07-29 Outpatient ASTRID, [facility] [id number] [facility] 10:08:00 23:59:00 JA 2021-06-02 2021-07-01 Outpatient ASTRID, [facility] [id number] [facility] 09:53:00 23:59:00 JA 2021-06-25 2021-06-25 Outpatient CARMENMEAN, [facility] [id number] [facility] 09:00:00 23:59:00 [facility] 2021-05-25 2021-06-23 Outpatient PATDEE [facility] [id number] [facility] 09:59:00 23:59:00 TEE MANUEL 2021-05-26 2021-05-26 Outpatient CARMENMEAN, [facility] [id number] [facility] 05:23:00 10:30:[address] [facility] 2021-05-25 2021-05-25 Outpatient JUMEAN, [facility] [id number] [facility] 08:00:00 23:59:00 [facility] 2021-04-03 2021-05-01 Outpatient JUMEAN, [facility] [id number] [facility] 08:32:00 18:00:00 [facility] 2021-04-20 2021-04-20 Outpatient JUMEAN, [facility] [id number] [facility] 08:20:00 23:59:00 [facility] 2021-04-032021-04-04 Inpatient E RUDY, [facility] [id number] [facility] 15:32:00 18:38:00 STEVEN 2021-03-23 2021-03-23 Outpatient GUY, [facility] [id number] [facility] 07:25:00 23:59:00 MARWAN 2021-02-02 2021-03-03 Outpatient GUY, [facility] [id number] [facility] 09:24:00 23:59:00 MARWAN 2021-02-23 2021-02-23 EXT MHH OP Guy, EXT MSRDP [id number] [id number] [place] 00:00:00 00:00:00 Marwan F LOCATION [id number] Health [id number] 2021-02-23 2021-02-23 EXT MHH OP Guy, EXT MSRDP 1.2.840.114 [id number] [place] 00:00:00 00:00:00 Marwan F LOCATION [id number] Health [id number] 2021-02-17 2021-02-17 Outpatient GUY, [facility] [id number] [facility] 05:20:00 10:12:00 MARWAN 2021-02-02 2021-02-02 Outpatient GUY, [facility] [id number] [facility] 07:27:00 23:59:00 MARWAN 2021-01-06 2021-01-21 Inpatient U TRICIA, [facility] [id number] [facility] 20:19:00 15:00:00 JOHN 2020-12-22 2021-01-20 Outpatient GUY, [facility] [id number] [facility] 09:16:00 23:59:00 MARWAN 2021-01-19 2021-01-19 Office Guy, EXT MSRDP [id number] [place] 08:40:00 09:00:00 Visit Marwan F LOCATION [id number] Health [id number] 2021-01-192021-01-19 Office Guy, EXT MSRDP [id number] [place] 08:40:00 09:00:00 Visit Maraln F LOCATION [id number] Health [id number] 2021-01-06 2021-01-06 Outpatient GUY [facility] [id number] [facility] 05:16:00 10:30:00 MARWAN 2020-12-30 2020-12-30 Outpatient GUY, [facility] [id number] [facility] 07:08:00 12:05:00 MARWAN 2020-12-30 2020-12-30 EXT [facility] IP System, EXT MSRDP 1.2.840.114 [id number] [place] 00:00:00 00:00:00 Provider LOCATION [id number] Health Not In [id number] 2020-12-30 2020-12-30 EXT [facility] IP System, EXT MSRDP 1.2.840.114 [id number] UT 00:00:00 00:00:00 Provider LOCATION [id number] Health Not In [id number] 2020-12-23 2020-12-26 Inpatient U GUY [facility] [id number] [facility] 21:52:00 15:05:00 MARWAN 2020-12-23 2020-12-23 [id number] 06:05:00 11:50:00 MARWAN 2020-12-22 2020-12-22 EXT [facility] OP Guy, EXT MSRDP 1.2.840.114 [id number] [place] 00:00:00 00:00:00 Marwan F LOCATION [id number] Health [id number] 2020-12-22 2020-12-22 EXT [facility] OP Guy, EXT MSRDP 1.2.840.114 [id number] [place] 00:00:00 00:00:00 Marwan F LOCATION [id number] Health [id number] 2020-12-10 2020-12-17 Inpatient U CARMELINA, [facility] [id number] [facility] 12:58:00 17:00:00 JIGNESH 2020-12-17 2020-12-17 EXT [facility] OP Jumean, EXT MSRDP 1.2.840.114 [id number] [place] 00:00:00 00:00:00 Marwan F LOCATION [id number] Health [id number] 2020-12-17 2020-12-17 EXT [facility] OP Jumean, EXT MSRDP 1.2.840.114 1 [id number] [place] 00:00:00 00:00:00 Marwan F LOCATION [id number] Health [id number] 2020-12-11 2020-12-11 EXT [facility] OP Jumean, EXT MSRDP 1.2.840.114 1 [id number] UT 00:00:00 00:00:00 Marwan F LOCATION [id number] Health [id number] [id number] 2020-12-11 2020-12-11 EXT [facility] OP Jumean, EXT MSRDP 1.2.840.114 1 [id number] UT 00:00:00 00:00:00 Marwan F LOCATION [id number] Health [id number] 2020-12-11 2020-12-11 EXT [facility] OP Jumean, EXT MSRDP 1.2.840.114 1 [id number] [place] 00:00:00 00:00:00 Marwan F LOCATION [id number] Health [id number] 2020-12-11 2020-12-11 EXT [facility] OP Jumean, EXT MSRDP 1.2.840.114 1 [id number] UT 00:00:00 00:00:00 Marwan F LOCATION [id number] Health [id number] [id number] 2020-12-11 2020-12-11 EXT MHH OP Carmenmean, EXT MSRDP 1.2.840.114 1 [id number] [place] 00:00:00 00:00:00 Marwan F LOCATION [id number] Health 9.2.7.2.686 [id number] 2020-12-11 2020-12-11 EXT MHH OP Carmenmean, EXT MSRDP 1.2.840.114 1 [id number] UT 00:00:00 00:00:00 Marwan F LOCATION [id number] Health 9.2.7.2.686 [id number] 2020-12-11 2020-12-11 EXT MHH OP Guy, EXT MSRDP 1.2.840.114 1 [id number] [place] 00:00:00 00:00:00 Marwan F LOCATION [id number] Health 9.2.7.2.686 [id number] 2020-12-11 2020-12-11 EXT MHH OP Meian, EXT MSRDP 1.2.840.114 1 [id number] [place] 00:00:00 00:00:00 Marwan F LOCATION [id number] Health 9.2.7.2.686 [id number] 2020-12-09 2020-12-09 Outpatient GUY, [facility] [id number] [facility] 09:26:00 23:59:00 MARWAN 2020-12-09 2020-12-09 Outpatient TRICIA, [facility] [id number] [facility] 10:35:00 17:45:00 ZAMZAM 2020-12-09 2020-12-09 EXT MH OP Meian, EXT MSRDP 1.2.840.114 [id number] UT 00:00:00 00:00:00 Marwan F LOCATION [id number] Health 9.2.7.2.686 [id number] 2020-12-09 2020-12-09 EXT MHH OP Carmenmean, EXT MSRDP 1.2.840.114 1 [id number] UT 00:00:00 00:00:00 Marwan F LOCATION [id number] Health 9.2.7.2.686 [id number] 2020-12-08 2020-12-08 EXT MHH OP Carmenmean, EXT MSRDP 1.2.840.114 1 [id number] [place] 00:00:00 00:00:00 Marwan F LOCATION [id number] Health 9.2.7.2.686 [id number] 2020-12-08 2020-12-08 EXT MHH OP Carmenmean, EXT MSRDP 1.2.840.114 1 [id number] [place] 00:00:00 00:00:00 Marwan F LOCATION [id number] Health [id number] 2020-11-01 2020-12-05 Inpatient E CADE [facility] [id number] [facility] 20:49:00 18:07:00 OSEI CROWDER 2020-11-12 2020-11-12 EXT MHH OP Cade, EXT MSRDP 1.2.840.114 [id number] [place] 00:00:00 00:00:00 Osei LOCATION [id number] H ealth 9.2.7.2.686 [id number] 2020-07-29 2020-07-29 Outpatient [facility] [id number] Univers 08:40:00 08:40:00 [id number] [facility] 2020-07-29 2020-07-29 Outpatient Sanjiv GUTIERREZ [facility] [id number] Univers 08:40:00 08:40:00 MANE [facility] 2020-07-28 2020-07-28 Outpatient Sanjiv GUTIERREZ [facility] [id number] Univers 14:20:00 14:20:00 [facility] 2019-10-08 2019-10-08 Out[facility] [id number] Common 14:00:00 14:00:[address] [facility] 2019-07-16 2019-07-16 Outpatient [facility] [id number] Common 16:40:00 16:40:[address] [facility] 2019-06-29 2019-06-29 Out[facility] [id number] Common 11:31:00 11:31:[address] [facility] 2019-05-04 2019-05-04 Outpatient [facility] [id number] Common 08:20:00 08:20:[address] [facility] 2019-04-04 2019-04-04 Outpatient [facility] [id number] Common 16:40:00 16:40:[address] [facility] 2019-03-13 2019-03-13 Outpatient [facility] [id number] Common 16:00:00 16:00:[address] [facility] 2019-01-02 2019-01-02 Outpatient [facility] [id number] Common 10:45:00 10:45:00 [facility] 2018-10-21 2018-10-21 Out[facility] [id number] Common 17:00:00 17:00:00 [facility] 2018-10-11 2018-10-11 Outpatient [facility] [id number] Common 13:53:00 13:53:[address] [facility] 2018-08-14 2018-08-14 Outpatient [facility] [id number] Common 09:30:00 09:30:00 [facility] 2018-06-07 2018-06-07 Out[facility] [id number] Common 14:45:00 14:45:00 t [facility] 2018-01-04 2018-01-04 Outpatient [facility] [id number] Common 14:10:00 14:10:00 t Urgent Urgent Care S pirit Care [facility] 2018-01-03 2018-01-03 Outpatient [facility] [id number] Common 14:30:00 14:30:00 t [facility] 2017-09-28 2017-09-28 Outpatient [facility] [id number] Common 13:55:00 13:55:00 t [facility] it Road [facility] 2017-08-16 2017-08-16 Outpatient [facility] [id number] Common 15:30:00 15:30:[address] [facility] [address] [facility] it Road [facility] 2017-08-16 2017-08-16 Outpatient [facility] [id number] Common 11:50:00 11:50:[address] [facility] [address] [facility] it [address] [facility] Results This patient has no known results.
[2023-01-15] MEDS ORDERED: KETOROLAC 30 MG/ML INJ ONE (08:55)
--- NOTE | 2023-01-15 09:10 | RAD REPORT ---
EXAM DESCRIPTION: RAD - Foot Right 3 View - 01/15/2023 9:01 am CLINICAL HISTORY: Right foot pain status post injury FINDINGS: No fracture or dislocation is seen 2 centimeter calcific/bony density lies along dorsal aspect of forefoot adjacent to proximal metatars als. This likely is chronic. Hallux valgus deformity
--- NOTE | 2023-01-15 09:45 | ER ---
Nurse's Notes [facility] Name: Terra Hutchinson Age: 62 yrs Sex: Female : 1960 Arrival Date: 01/15/2023 Time: 08:17 Bed 8 Private MD: Diagnosis: Pain in right foot Presentation: 01/15 08:33 Chief complaint: Barstool fell onto right foot last night, c/o pain /. Coronavirus hb screen: At this time, the client does not indicate any symptoms associated with coronavirus-19. Ebola Screen: No symptoms or risks identified at this time. Initial Sepsis Screen: Does the patient meet any 2 criteria? No. Patient's initial sepsis screen is negative. Does the patient have a suspected source of infection? No. Patient's initial sepsis screen is negative. Risk Assessment: Do you want to hurt yourself or someone else? Patient reports no desire to harm self or others. Onset of symptoms was January 14, 2023. 08:33 Method Of Arrival: Ambulatory hb 08:33 Acuity: EYAD 4 hb Historical: - Allergies: 08:34 No Known Allergies; hb - Home Meds: 08:34 Jardiance Oral [Active]; Magnesium Oxide Oral [Active]; pantoprazole Oral [Active]; hb Prednisone Oral [Active]; tacrolimus Oral [Active]; - PMHx: 08:34 diabetes mellitus; HEART FAILURE; hb - PSHx: 08:34 Heart transplant October 2020 ([facility]); hb Screenin:30 [facility] ED Fall Risk Assessment (Adult) History of falling in the last 3 months, kc6 including since admission No falls in past 3 months (0 pts) Confusion or Disorientation No (0 pts) Intoxicated or Sedated No (0 pts) Impaired Gait Yes (1 pt) Mobility Assist Device Used No (0 pt) Altered Elimination No (0 pt) Score/Fall Risk Level 0 - 2 = Low Risk. Abuse screen: Denies threats or abuse. Denies injuries from another. Nutritional screening: No deficits noted. Tuberculosis screening: No symptoms or risk factors identified. Assessment: 08:30 General: Appears in no apparent distress. comfortable, Behavior is calm, cooperative, kc6 appropriate for age. Pain: Complains of pain in right foot. Neuro: Level of Consciousness is awake, alert, obeys commands, Oriented to person, place, time, situation, Appropriate for age. Cardiovascular: Capillary refill < 3 seconds. Respiratory: Airway is patent Trachea midline Respiratory effort is even, unlabored, Respiratory pattern is regular, symmetrical. GI: No signs and/or symptoms were reported involving the gastrointestinal system. : No signs and/or symptoms were reported regarding the genitourinary system. EENT: No signs and/or symptoms were reported regarding the EENT system. Derm: No signs and/or symptoms reported regarding the dermatologic system. Skin is intact, is healthy with good turgor, Skin is pink, warm \T\ dry. Musculoskeletal: No signs and/or symptoms reported regarding the musculoskeletal system. Circulation, motion, and sensation intact. Capillary refill < 3 seconds, Range of motion: intact in all extremities. 09:30 Reassessment: Patient appears in no apparent distress at this time. No changes from kc6 previously documented assessment. Patient and/or family updated on plan of care and expected duration. Pain level reassessed. Patient is alert, oriented x 3, equal unlabored respirations, skin warm/dry/pink. Vital Signs: 08:33 BP 116 / 72; Pulse 94; Resp 16; Temp 97.9(TE); Pulse Ox 100% on R/A; Weight 62.6 kg; hb Height 5 ft. 3 in. ; Pain 10/10; 08:33 Body Mass Index 24.45 (62.60 kg, 160.02 cm) hb 08:33 Pain Scale: Adult hb ED Course: 08:21 Patient arrived in ED. mg5 08:29 Ting Lee RN is Primary Nurse. kc6 08:30 Irma Agnulo FNP-C is PHCP. snw 08:30 Troy Padgett MD is Attending Physician. snw 08:30 Patient has correct armband on for positive identification. Bed in low position. Call kc6 light in reach. Side rails up X 1. Adult w/ patient. Client placed on continuous cardiac and pulse oximetry monitoring. NIBP monitoring applied. 08:30 Arm band placed on. kc6 08:34 Triage completed. hb 09:03 Foot Right 3 View XRAY In Process Unspecified. EDMS 09:53 No provider procedures requiring assistance completed. Patient did not have IV access kc6 during this emergency room visit. Administered Medications: 08:47 Drug: Ketorolac IM 30 mg Route: IM; Site: right deltoid; kc6 09:18 Follow up: Response: No adverse reaction; Pain is decreased kc6 Medication: 09:54 VIS not applicable for this client. kc6 Outcome: 09:45 Discharge ordered by MD. ryan 09:54 Discharged to home ambulatory, with family. kc6 09:54 Condition: stable 09:54 Discharge instructions given to patient, Instructed on discharge instructions, follow up and referral plans. Demonstrated understanding of instructions, follow-up care. 09:54 Patient left the ED. kc6 Signatures: Dispatcher [employer] EDMS Irma Angulo, INSPECTOR [employer]-C INS[employer]OR [employer]-Csnw Salome Nunez RN RN Ting Sanchez RN RN kc6 Brie Naranjo mg5
--- NOTE | 2023-01-15 09:45 | EDPHYS ---
Physician Documentation [facility] Name: Terra Hutchinson Age: 62 yrs Sex: Female : 1960 Arrival Date: 01/15/2023 Time: 08:17 Bed 8 Private MD: Troy Simon HPI: 01/15 09:06 This 62 yrs old Female presents to ER via Ambulatory with complaints of Foot Injury, snw Foot Pain, Vomiting, Diarrhea. 09:06 The patient presents with a crush injury, from a heavy object. The complaints affect snw the dorsum of right foot. Context: The problem was sustained at home, resulted from a crush injury, from a heavy object, the patient can partially bear weight, Problem is a result from a previous injury: No. Onset: The symptoms/episode began/occurred suddenly, last night. Associated signs and symptoms: Pertinent positives: pt states he stepped on foot and it hurt so bad that she vomited and had diarrhea. Severity of symptoms: At their worst the symptoms were moderate, severe. The patient has not experienced similar symptoms in the past. It is unknown whether or not the patient has recently seen a physician. Historical: - Allergies: 08:34 No Known Allergies; hb - Home Meds: 08:34 Jardiance Oral [Active]; Magnesium Oxide Oral [Active]; pantoprazole Oral [Active]; hb Prednisone Oral [Active]; tacrolimus Oral [Active]; - PMHx: 08:34 diabetes mellitus; HEART FAILURE; hb - PSHx: 08:34 Heart transplant October 2020 ([facility]); hb ROS: 09:08 Constitutional: Negative for fever, chills, and weight loss, Eyes: Negative for injury, snw pain, redness, and discharge, ENT: Negative for injury, pain, and discharge, Neck: Negative for injury, pain, and swelling, Cardiovascular: Negative for chest pain, palpitations, and edema, Respiratory: Negative for shortness of breath, cough, wheezing, and pleuritic chest pain, Back: Negative for injury and pain, : Negative for injury, bleeding, discharge, and swelling, Skin: Negative for injury, rash, and discoloration, Neuro: Negative for headache, weakness, numbness, tingling, and seizure, Psych: Negative for depression, anxiety, suicide ideation, homicidal ideation, and hallucinations. 09:08 Abdomen/GI: Positive for nausea, vomiting, and diarrhea. 09:08 MS/extremity: Positive for swelling, tenderness, of the right foot and right first toe. Exam: 09:05 Constitutional: This is a well developed, well nourished patient who is awake, alert, snw and in no acute distress. Head/Face: Normocephalic, atraumatic. Eyes: Pupils equal round and reactive to light, extra-ocular motions intact. Lids and lashes normal. Conjunctiva and sclera are non-icteric and not injected. Cornea within normal limits. Periorbital areas with no swelling, redness, or edema. ENT: Nares patent. No nasal discharge, no septal abnormalities noted. Tympanic membranes are normal and external auditory canals are clear. Oropharynx with no redness, swelling, or masses, exudates, or evidence of obstruction, uvula midline. Mucous membranes moist. Neck: Trachea midline, no thyromegaly or masses palpated, and no cervical lymphadenopathy. Supple, full range of motion without nuchal rigidity, or vertebral point tenderness. No Meningismus. Chest/axilla: Normal chest wall appearance and motion. Nontender with no deformity. No lesions are appreciated. Cardiovascular: Regular rate and rhythm with a normal S1 and S2. No gallops, murmurs, or rubs. Normal PMI, no JVD. No pulse deficits. Respiratory: Lungs have equal breath sounds bilaterally, clear to auscultation and percussion. No rales, rhonchi or wheezes noted. No increased work of breathing, no retractions or nasal flaring. Abdomen/GI: Soft, non-tender, with normal bowel sounds. No distension or tympany. No guarding or rebound. No evidence of tenderness throughout. Back: No spinal tenderness. No costovertebral tenderness. Full range of motion. Skin: Warm, dry with normal turgor. Normal color with no rashes, no lesions, and no evidence of cellulitis. Neuro: Awake and alert, GCS 15, oriented to person, place, time, and situation. Cranial nerves II-XII grossly intact. Motor strength 5/5 in all extremities. Sensory grossly intact. Cerebellar exam normal. Normal gait. Psych: Awake, alert, with orientation to person, place and time. Behavior, mood, and affect are within normal limits. 09:05 Musculoskeletal/extremity: Extremities: grossly normal except: noted in the dorsum of right foot and right first toe: contusion, ecchymosis, swelling, tenderness, ROM: no acute changes, Circulation is intact in all extremities. Vital Signs: 08:33 BP 116 / 72; Pulse 94; Resp 16; Temp 97.9(TE); Pulse Ox 100% on R/A; Weight 62.6 kg; hb Height 5 ft. 3 in. ; Pain 10/10; 08:33 Body Mass Index 24.45 (62.60 kg, 160.02 cm) hb 08:33 Pain Scale: Adult hb MDM: 08:30 Patient medically screened. snw 09:08 Differential diagnosis: dislocation, open fracture, closed fracture, contusion, snw tendonitis, gout. Data reviewed: vital signs, nurses notes, radiologic studies, plain films. I considered the following discharge prescriptions or medication management in the emergency department Medications were administered in the Emergency Department. See MAR. Counseling: I had a detailed discussion with the patient and/or guardian regarding the historical points, exam findings, and any diagnostic results supporting the discharge/admit diagnosis, radiology results, the need for outpatient follow up, to return to the emergency department if symptoms worsen or persist or if there are any questions or concerns that arise at home. Special discussion: Based on the history and exam findings, there is no indication for further emergent testing or inpatient evaluation. I discussed with the patient/guardian the need to see the orthopedic surgeon for further evaluation of the symptoms. I discussed with the patient/guardian the need to see the primary care provider for further evaluation of the symptoms. 01/15 08:42 Order name: Foot Right 3 View XRAY; Complete Time: 09:20 snw 01/15 09:44 Order name: Walking boot; Complete Time: 09:53 snw Administered Medications: 08:47 Drug: Ketorolac IM 30 mg Route: IM; Site: right deltoid; kc6 09:18 Follow up: Response: No adverse reaction; Pain is decreased kc6 Disposition Summary: 01/15/23 09:45 Discharge Ordered Location: Home snw Condition: Stable snw Diagnosis - Pain in right foot snw Followup: snw - With: Emergency Department - When: As needed - Reason: Worsening of condition Followup: snw - With: Private Physician - When: 2 - 3 days - Reason: Recheck today's complaints, Continuance of care, Re-evaluation by your physician Discharge Instructions: - Discharge Summary Sheet snw - Musculoskeletal Pain snw - How to Use Cold Therapy, [id number] snw - Heat Therapy, [id number] snw - Foot Pain snw Forms: - Medication Reconciliation Form snw - Thank You Letter snw - Antibiotic Education snw - Prescription Opioid Use snw - Patient Portal Instructions snw - Leadership Thank You Letter snw Signatures: Dispatcher [employer] EDMS Irma Angulo, IRRIGATOR [employer]-C IRRIGATOR [employer]-Csnw Salome Nunez, RN RN Ting Lee RN RN kc6
[2023-01-15 09:59] VITALS: BP 116/72; TEMP 97.9; O2SAT 100
== END 2023-01-15 09:54 | disposition home or self-care (01) ==
LOC: ER 08:17
DX: M79.671 Pain in right foot (principal); R11.2 Nausea with vomiting, unspecified; E11.9 Type 2 diabetes mellitus without complications; Z94.1 Heart transplant status
CPT/HCPCS: 96372; 99284